=== PATIENT | female | born 1970 | race Caucasian/White ===

== ENCOUNTER → 2017-05-06 | Outpatient (CLI) | payer BC ==
--- NOTE | 2017-05-06 08:56 | RADIOLOGY REPORT (SQ) ---
EXAM DESCRIPTION: CT CHEST WITHOUT COMPLETED DATE/TIME: 05/06/2017 8:15 am REASON FOR STUDY: LOCALIZED SWELLING, MASS OR LUMP R22.9 LOCALIZED SWELLING, MASS AND LUMP, UNSPECI FIED Histoplasmosis. History of 3 pulmonary nodules right lung. Paratracheal mass. COMPARISON: None. TECHNIQUE: CT scan performed of the chest without intravenous contrast. Images reviewed with lung, soft tissue and bone windows. Reconstructed coronal and sagittal MPR images reviewed. All images st ored on PACS. All CT scanners at this facility use dose modulation, iterative reconstruction, and/or weight based d osing when appropriate to reduce radiation dose to as low as reasonably achievable (ALARA). [facility]: Dose Right [facility]: CareDose [facility]: Dose Right [facility]: Teradose 4D [facility]: Fashiolista RADIATION DOSE: CT Rad equipment meets quality standard of care and radiation dose reduction techniq ues were employed. CTDIvol: 14.0 mGy. DLP: 586 mGy-cm. mGy. LIMITATIONS: No technical limitations. FINDINGS: LUNGS AND PLEURA: In the right upper lobe there is evidence of a 3 mm partially calcified pulmonary nodule, 8 mm calcified granuloma and adjacent 4 mm calcified granuloma. Fibrotic scarring right upper lobe. HILAR AND MEDIASTINAL STRUCTURES: There is evidence of a cluster of calcified pretracheal nodes. Ezra cified right hilar node. HEART AND VASCULAR STRUCTURES: No aneurysm. No pericardial effusion. UPPER ABDOMEN: Status post cholecystectomy. Hiatal hernia. THYROID AND OTHER SOFT TISSUES: No masses. No adenopathy. BONES: No significant finding. IMPRESSION: Findings consistent with old granulomatous disease. Fibrotic scarring right upper lobe. TECHNICAL DOCUMENTATION: JOB ID: [id number] Quality ID # [id number]: Final reports with documentation of one or more dose reduction techniques (e.g., Au tomated exposure control, adjustment of the mA and/or kV according to patient size, use of iterative reconstruction technique) 2010 [employer]- All Rights Reserved
== END ==
LOC: RAD 06:59
DX: R22.9 Localized swelling, mass and lump, unspecified (principal); D71 Functional disorders of polymorphonuclear neutrophils; K44.9 Diaphragmatic hernia without obstruction or gangrene
CPT/HCPCS: 71250

== ENCOUNTER 2017-05-16 03:11 | Observation (INO) | payer BC ==
[2017-05-16] MEDS ORDERED: ASPIRIN 81 MG TABLET, CHEWABLE PO ONE ×2 (03:58→09:00)
--- NOTE | 2017-05-16 04:03 | ER Document Report ---
ED Medical Screen (RME) - General Chief Complaint: Chest Pain > 30 Stated Complaint: CHEST PAIN Time Seen by Provider: 05/16/17 03:58 Mode of Arrival: Ambulatory Information source: Patient Notes: 47-year-old female presents to ED for chest pain radiating down left arm with shortness of breath. She states her pain is squeezing type pain level 3/5. She states it has been going on and off this afternoon evening. 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 She states that when they did the surgery that caused her right lower lobe to collapse and she needed a chest tube. She states she had a collapsed right upper lobe in 2004 that she needs a chest tube. She states she has a history of high cholesterol. She says he has some nodes histoplasmosis on the right lung. She states afford she is a former smoker drinks occasionally but does not do any drugs. 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 She lives with her family. I have greeted and performed a rapid initial assessment of this patient. A comprehensive ED assessment and evaluation of the patient, analysis of test results and completion of medical decision making process will be conducted by an additional ED providers. TRAVEL OUTSIDE OF THE [place] IN LAST 30 DAYS: No - Related Data Allergies/Adverse Reactions: flavoxate [From Urispas] Allergy (Verified 05/16/17 03:28) acetaminophen [From Wygesic] Adverse Reaction (Verified 05/16/17 03:28) propoxyphene [From Wygesic] Adverse Reaction (Verified 05/16/17 03:28) Past Medical History - Social History Frequency of alcohol use: Occasional Drug Abuse: None Renal/ Medical History: Denies: Hx Peritoneal Dialysis Physical Exam - Vital signs Vitals: Temp Pulse Resp BP Pulse Ox 99.2 F 80 18 173/92 H 98 05/16/17 03:28 05/16/17 03:28 05/16/17 03:28 05/16/17 03:28 05/16/17 03:28 Course - Vital Signs Vital signs: Temp Pulse Resp BP Pulse Ox 99.2 F 80 18 173/92 H 98 05/16/17 03:28 05/16/17 03:28 05/16/17 03:28 05/16/17 03:28 05/16/17 03:28
[2017-05-16 05:03] LABS: ABSOLUTE BASOPHILS # (AUTO) 0.1 10^3/uL (0.0-0.2); ABSOLUTE EOSINOPHILS # (AUTO) 0.2 10^3/uL (0.0-0.6); ABSOLUTE LYMPHOCYTES (AUTO) 1.8 10^3/uL (0.5-4.7); ABSOLUTE MONOCYTES (AUTO) 0.6 10^3/uL (0.1-1.4); ABSOLUTE NEUT (AUTO) 5.6 10^3/uL (1.7-8.2); BASOPHILS % (AUTO) 0.8 % (0-2); EOSINOPHILS % (AUTO) 2.8 % (0-6); HEMATOCRIT 43.1 % (36.0-47.0); HEMOGLOBIN 14.6 g/dL (12.0-15.5); LYMPHOCYTES % (AUTO) 22.1 % (13-45); MEAN CORPUSCULAR HEMOGLOBIN 29.8 pg (27.0-33.4); MEAN CORPUSCULAR HGB CONC 33.8 g/dL (32.0-36.0); MEAN CORPUSCULAR VOLUME 88 fl (80-97); MONOCYTES % (AUTO) 7.2 % (3-13); PLATELET COUNT 234 10^3/uL (150-450); RED CELL DISTRIBUTION WIDTH 13.2 % (11.5-14.0); SEGMENTED NEUTROPHILS % (AUTO) 67.1 % (42-78); TOTAL CELLS COUNTED % (AUTO) 100 %; WHITE BLOOD COUNT 8.4 10^3/uL (4.0-10.5)
--- NOTE | 2017-05-16 05:15 | RADIOLOGY REPORT (SQ) ---
EXAM DESCRIPTION: CHEST PA/LAT CLINICAL HISTORY: Chest pain radiating down left arm COMPARISON: None. FINDINGS: Frontal and lateral views of the chest. The cardiomediastinal silhouette has normal size and contour. No consolidation, pneumothorax, or pleural effusion. No displaced rib fractures identified. Upper abdominal soft tissues are unremarkable. IMPRESSION: 1. No acute pulmonary process identified.
[2017-05-16 05:18] LABS: ALANINE AMINOTRANSFERASE 42 U/L (9-52); ALBUMIN 4.4 g/dL (3.5-5.0); ALKALINE PHOSPHATASE 76 U/L (38-126); ANION GAP 10 (5-19); ASPARTATE AMINO TRANSFERASE 23 U/L (14-36); BILIRUBIN,DIRECT 0.4 mg/dL (0.0-0.4); BILIRUBIN,TOTAL 0.4 mg/dL (0.2-1.3); BLOOD UREA NITROGEN 17 mg/dL (7-20); CALCIUM 10.2 mg/dL (8.4-10.2); CARBON DIOXIDE 28 mmol/L (22-30); CHLORIDE 105 mmol/L (98-107); CREATINE KINASE 46 U/L (30-135); GLUCOSE 89 mg/dL (75-110); POTASSIUM 4.7 mmol/L (3.6-5.0); SODIUM 143.2 mmol/L (137-145); TOTAL PROTEIN 6.9 g/dL (6.3-8.2)
[2017-05-16 05:30] LABS: CREATINE KINASE MB 0.76 ng/mL (<4.55); NT PRO BNP 126 pg/mL (<125)
[2017-05-16 05:32] LABS: TROPONIN I < 0.012 ng/mL
[2017-05-16] MEDS ORDERED: LIDOCAINE 2% VISCOUS SOLN 20 ML UDCUP PO ONE (07:42)
[2017-05-16] MEDS ORDERED: MAG HYDROX/AL HYDROX/SIMETH SUSP 30 ML UDCUP PO ONE (07:42)
[2017-05-16] MEDS ORDERED: METOCLOPRAMIDE HCL ORAL SOLN 10 MG/10 ML UDCUP PO ONE (07:42)
--- NOTE | 2017-05-16 07:44 | ER Document Report ---
ED General - General Chief Complaint: Chest Pain > 30 Stated Complaint: CHEST PAIN Time Seen by Provider: 05/16/17 03:58 Mode of Arrival: Ambulatory Notes: Patient is pain at approximately 9:00 last evening while she was at work. She states that she had just given the patient apparently had to pull off and turning over. She states that she walked away and 15 minutes later she had this left breast chest wall pain that lasted 15 minutes and resolved completely on its own. she had states a couple hours later after she ate some pizza she had return of her symptoms that she felt consistent with heartburn. She did not take any [id number] medications prior to coming to the ED. Currently she describes her symptoms as bruising pain around her left breast that is not worse with movement or position. states that this was initially 5 out of 5 in severity completely resolved and when it returned it was about 2 out of 5 in severity and is been present ever since. She did not receive any aspirin in triage. States that she had issues with chest pain only once before after she had had a sternotomy/right thoracotomy for previous Paratracheal mass resection back in September. She denies any previous history of PE, DVT. Former smoker quit 2 years ago. Not on control. Denies any recent travel. Denies any history of high cholesterol, diabetes, coronary artery disease, family history significant for an CT and a family member in the age of 50. Meds; lisinopril 10mg TRAVEL OUTSIDE OF THE [place] IN LAST 30 DAYS: No - Related Data Allergies/Adverse Reactions: flavoxate [From Urispas] Allergy (Verified 05/16/17 03:28) acetaminophen [From Wygesic] Adverse Reaction (Verified 05/16/17 03:28) propoxyphene [From Wygesic] Adverse Reaction (Verified 05/16/17 03:28) Past Medical History - General Information source: Patient - Social History Smoking Status: Former Smoker Frequency of alcohol use: Occasional Drug Abuse: None Family History: CAD - denies CAD under 65 Patient has suicidal ideation: No Patient has homicidal ideation: No Renal/ Medical History: Denies: Hx Peritoneal Dialysis Review of Systems - Review of Systems Constitutional: No symptoms reported EENT: No symptoms reported Cardiovascular: See HPI Respiratory: No symptoms reported Gastrointestinal: See HPI Musculoskeletal: See HPI Neurological/Psychological: No symptoms reported -: Yes All other systems reviewed and negative Physical Exam - Vital signs Vitals: Temp Pulse Resp BP Pulse Ox 99.2 F 80 18 173/92 H 98 05/16/17 03:28 05/16/17 03:28 05/16/17 03:28 05/16/17 03:28 05/16/17 03:28 - Notes Notes: PHYSICAL EXAM GENERAL: Alert, interacts well. HEAD: Normocephalic, atraumatic. EYES: Pupils equal, round, and reactive to light. Extraocular movements intact. ENT: Oral mucosa moist, tongue midline. NECK: Full range of motion. Supple. Trachea midline. LUNGS: Clear to auscultation bilaterally, no wheezes, rales, or rhonchi. No respiratory distress. HEART: Regular rate and rhythm. No murmurs, gallops, or rubs. ABDOMEN: Soft, nondistended, nontender. No guarding, rebound, or rigidity.. Bowel sounds present in all 4 quadrants. EXTREMITIES: Moves all 4 extremities spontaneously. No edema, radial and dorsalis pedis pulses 2/4 bilaterally. No cyanosis. NEUROLOGICAL: Alert and oriented x4. Normal speech. PSYCH: Normal affect, normal mood. SKIN: Warm, dry, normal turgor. No rashes or lesions noted. Course - Re-evaluation Re-evalutation: 05/16/17 07:51 Patient is a 47-year-old female is hemodynamically stable, no acute distress and afebrile. Patient still states that her discomfort is approximately 2 out of 5 in severity. Will medicate with a GI cocktail and aspirin and reassess. Patient is due for repeat troponin will add on a d-dimer to be done at 830. 05/16/17 8:45 Patient states that her chest pain improved after the aspirin but with no improvement with a GI cocktail. Repeat troponin is negative. Patient was given sublingual nitro to achieve complete resolution of her chest pressure. Patient with a heart score for based on improvement after nitro and benign physical exam concerning for musculoskeletal cause, GERD. Patient with a negative d-dimer and stable vitals are concerning for PE. Chest x-ray stable without evidence of acute infiltrate, acute respiratory failure, pneumothorax. Patient will be admitted for chest pain rule out and stress test this afternoon. Patient's been accepted by Dr Merchant - Vital Signs Vital signs: Temp Pulse Resp BP Pulse Ox 98 F 72 18 153/84 H 100 05/16/17 06:41 05/16/17 06:41 05/16/17 10:00 05/16/17 06:41 05/16/17 06:41 - Laboratory Result Diagrams: 05/16/17 04:40 05/16/17 04:40 Laboratory results interpreted by me: 05/16/17 04:40 NT-Pro-B Natriuret Pep 126 H - Diagnostic Test Radiology reviewed: Image reviewed, Reports reviewed - EKG Interpretation by Me EKG shows normal: Sinus rhythm Rate: Normal Rhythm: NSR When compared to previous EKG there are: Previous EKG unavailable Discharge - Discharge Clinical Impression: Chest pain Qualifiers: Chest pain type: unspecified Qualified Code(s): R07.9 - Chest pain, unspecified Condition: Stable Disposition: ADMITTED OBSERVATION Admitting Provider: Hospitalist [facility] Unit Admitted: Telemetry
[2017-05-16] MEDS ORDERED: ASPIRIN 81 MG TABLET, CHEWABLE ONE (08:07)
[2017-05-16] MEDS ORDERED: NITROGLYCERIN 0.4 MG/TAB 25 TAB/BOTTLE SL PRN (08:28)
[2017-05-16] MEDS ORDERED: IBUPROFEN 800 MG TABLET PO ONE (09:31)
[2017-05-16] MEDS ORDERED: ONDANSETRON 4 MG TAB.RAPDIS PO ONE (09:31)
[2017-05-16] MEDS ORDERED: LISINOPRIL 10 MG TABLET PO ONE (09:38)
[2017-05-16] MEDS ORDERED: ZOLPIDEM TARTRATE 5 MG TABLET PO PRN (09:59)
--- NOTE | 2017-05-16 10:02 | EKG REPORT ---
SEVERITY:- NORMAL ECG - SINUS RHYTHM : Confirmed by: Ernesto Moreno 16-May-2017 10:01:33
[2017-05-16] MEDS: ASPIRIN 81 MG TABLET, ENT COATED PO SCH (13:21)
[2017-05-16] MEDS: LISINOPRIL 10 MG TABLET PO SCH (13:21)
[2017-05-16] MEDS: AMLODIPINE BESYLATE 5 MG TABLET PO SCH (13:34)
--- NOTE | 2017-05-16 14:04 | PDOC H&P ---
History of Present Illness Admission Date/PCP: 05/16/17 10:00 DOMENIC BUTLER-Katia Patient complains of: Chest pain today History of Present Illness: FILI COHEN is a 47 year old female presented to emergency room complaining of left-sided chest pain with radiation to the left upper extremity. It was accompanied by heaviness and shortness of breath. She denied having experienced similar episodes in the past. 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 She states that she had a good night. Prior to experiencing the chest pain she had finished off bathing a patient with assistance. Patient also admits that lately she had been having problems with her blood pressure being up. Patient with it smoking 2 years ago. She has been trying to lose weight and so far has been successful as of losing 10 pounds. She denies history of diabetes. There is no history of coronary artery disease in first-degree relatives. Patient does not have a local provider. Patient relates improvement of pain after was given aspirin and then nitroglycerin. Due to comorbidities and response to aspirin and nitroglycerin our service was contacted and prompted to admit for further management. So far initial troponin set 2 have been negative Past Medical History Cardiac Medical History: Reports: Hypertension Pulmonary Medical History: Reports: None EENT Medical History: Reports: None Neurological Medical History: Reports: None Endocrine Medical History: Reports: None Renal/ Medical History: Reports: None Malignancy Medical History: Reports: None GI Medical History: Reports: None Musculoskeltal Medical History: Reports: None Skin Medical History: Reports: None Psychiatric Medical History: Reports: Depression Traumatic Medical History: Reports: None Hematology: Reports: None Infectious Medical History: Reports: Other Infectious History Note: Histoplasmosis Past Surgical History Past Surgical History: Reports: Cholecystectomy, Hysterectomy, Other - Bladder surgery Chest surgery Social History Smoking Status: Former Smoker Last Time Smoked: 2014 Frequency of Alcohol Use: Occasional Hx Recreational Drug Use: No Hx Prescription Drug Abuse: No Family History Family History: CAD - denies CAD under 65 Parental Family History Reviewed: Yes Children Family History Reviewed: Yes Sibling(s) Family History Reviewed.: Yes Medication/Allergy Home Medications: Gabapentin [Neurontin 300 mg Capsule] 300 mg PO Q8 05/16/17 Lisinopril [Prinivil 10 mg Tablet] 10 mg PO DAILY 05/16/17 Meloxicam [Mobic] 7.5 mg PO BID 05/16/17 Omeprazole 40 mg PO DAILY 05/16/17 Ranitidine HCl [Zantac 150 mg Tablet] 150 mg PO QPMP PRN 05/16/17 Tizanidine HCl [Zanaflex] 4 mg PO QHS 05/16/17 Allergies/Adverse Reactions: flavoxate [From Urispas] Allergy (Verified 05/16/17 03:28) acetaminophen [From Wygesic] Adverse Reaction (Verified 05/16/17 03:28) propoxyphene [From Wygesic] Adverse Reaction (Verified 05/16/17 03:28) Review of Systems Constitutional: ABSENT: chills, fatigue, fever(s), headache(s), night sweats Eyes: ABSENT: visual disturbances Ears: ABSENT: hearing changes Nose, Mouth, and Throat: ABSENT: mouth pain, sore throat Cardiovascular: PRESENT: chest pain Respiratory: PRESENT: dyspnea Gastrointestinal: PRESENT: abdominal pain. ABSENT: nausea, vomiting Genitourinary: ABSENT: dysuria, hematuria Musculoskeletal: ABSENT: back pain, deformity, joint swelling Neurological: PRESENT: dizziness. ABSENT: weakness Endocrine: ABSENT: polyphagia, polyuria Physical Exam Vital Signs: Temp Pulse Resp BP Pulse Ox 97.7 F 72 24 H 134/75 H 98 05/16/17 12:18 05/16/17 06:41 05/16/17 13:00 05/16/17 12:00 05/16/17 13:00 General appearance: PRESENT: no acute distress, cooperative, obese Head exam: PRESENT: atraumatic, normocephalic Eye exam: PRESENT: conjunctiva pink, EOMI, PERRLA Ear exam: PRESENT: normal external ear exam Mouth exam: PRESENT: moist Neck exam: PRESENT: full ROM, tenderness. ABSENT: JVD, lymphadenopathy Musculoskeletal exam: PRESENT: ambulatory, full ROM Neurological exam: PRESENT: alert, awake, oriented to person, oriented to place , oriented to time, oriented to situation, CN II-XII grossly intact Psychiatric exam: PRESENT: appropriate affect, normal mood Skin exam: PRESENT: dry, normal color Results Impressions: Chest X-Ray 05/16/17 03:59 IMPRESSION: 1. No acute pulmonary process identified. Assessment & Plan - Diagnosis (1) Hypertensive urgency Is this a current diagnosis for this admission?: Yes Plan: Will add Norvasc and increase lisinopril. Likely presentation relates to uncontrolled high blood pressure (2) Chest pain Qualifiers: Chest pain type: unspecified Qualified Code(s): R07.9 - Chest pain, unspecified Is this a current diagnosis for this admission?: Yes Plan: We will schedule patient for nuclear stress test and if negative will discharge today - Time Time Spent: 30 to 50 Minutes Medications reviewed and adjusted accordingly: Yes Anticipated discharge: Home - Inpatient Certification Based on my medical assessment, after consideration of the patient's comorbidities, presenting symptoms, or acuity I expect that the services needed warrant INPATIENT care.: No I certify that my determination is in accordance with my understanding of Medicare's requirements for reasonable and necessary INPATIENT services [42 CFR 412.3e].: Yes Medical Necessity: Need Close Monitoring Due to Risk of Patient Decompensation
[2017-05-16] MEDS: HEPARIN SOD (PORCINE) 5,000 UNIT/ML 1 ML SYRINGE SUBCUT SCH ×2 (16:41→23:07)
[2017-05-16] MEDS ORDERED: ATORVASTATIN CALCIUM 80 MG TABLET PO SCH (22:00)
[2017-05-17] MEDS: HEPARIN SOD (PORCINE) 5,000 UNIT/ML 1 ML SYRINGE SUBCUT SCH (05:55)
[2017-05-17] MEDS ORDERED: ACETAMINOPHEN 325 MG TABLET PO PRN (09:03)
[2017-05-17] MEDS ORDERED: REGADENOSON INJ 0.4 MG/5 ML DISP.SYRIN IV ONE (12:10)
[2017-05-17] MEDS ORDERED: AMINOPHYLLINE INJ/PF 250 MG/10 ML SDV IV ONE (12:10)
[2017-05-17] MEDS: ASPIRIN 81 MG TABLET, ENT COATED PO SCH (12:30)
[2017-05-17 12:31] VITALS: BP 147/68
[2017-05-17] MEDS: AMLODIPINE BESYLATE 5 MG TABLET PO SCH (12:31)
[2017-05-17] MEDS: LISINOPRIL 10 MG TABLET PO SCH (12:32)
--- NOTE | 2017-05-17 12:46 | DRAGON STRESS TEST REPORT ---
INTRAVENOUS LEXISCAN CARDIOLITE STRESS TEST USING SINGLE PHOTON EMMISION COMPUTERIZED TOMOGRAPHIC. DATE OF PROCEDURE: May 17, 2017, INDICATION : Chest pain CARDIAC RISK FACTORS: Hypertension RESTING EKG: Sinus rhythm without any baseline ST-T wave changes STRESS EKG: No significant changes noted with LexiScan bolus REASON FOR TERMINATION: Protocol. PROCEDURE REPORT: Baseline heart rate 62 beats per minute with blood pressure of 134/66. Patient had no significant complaints. Heart rate at 2 minutes post bolus 69 with a blood pressure of 154/80. 3 minutes post bolus heart rate 74 with blood pressure of 140/75. No significant EKG changes were noted. Patient had no significant complaints during the procedure or postprocedure. Patient injected with Aminophyllin 75 mg at 3 minutes or later after Lexiscan bolus. CONCLUSIONS: Normal EKG and hemodynamic response to IV LexiScan. NUCLEAR DATA: At rest the patient was given 15.60 millicuries of technetium 99 sestamibi injected intravenously. As per protocol rest gated SPECT images were obtained. On day of stress test, the patient was given intravenous LexiScan at a dose of 0.4 mg in 5 mL intravenously, followed by flush with normal saline. Subsequently the stress dose of 44.32 millicuries of technetium 99 sestamibi was injected intravenously. As per protocol stress gated images were obtained. NUCLEAR INTERPRETATION: Both raw and processed data were used for interpretation. Visual, qualitative, computer-generated quantitative data was used. There was good myocardial uptake of technetium compound. Motion artifact and soft tissue attenuations were noted. Increased visceral uptake was noted. Liver uptake was noted to be significantly increased, it caused some difficulty with interpretation of perfusion of the inferior wall. Small area in the mid inferior wall was noted to have decreased uptake in the stress imaging as compared to rest imaging with SDS of 1, therefore not significant overall and is felt most likely artifactual rather than true ischemia. No definitive areas of transient perfusion defect noted, No definitive areas of fixed perfusion defect or scars noted. In addition, mild increased point uptake noted in the left forearm, possible slight extravasation of radioactive material. It did not materially affect the interpretation of cardiac uptake. Consider reexamination of the site , and left upper arm. EKG gated imaging showed LV EF at 60 %, rest and stress gated EF similar visually. T. I D. ratio was 0.64. Lung heart ratio noted to be within normal limits 0.39. No significant extracardiac and abnormal radiotracer activities were noted. RV free wall uptake was noted to be WNL. IMPRESSION: Also refer to comments under nuclear interpretation. Also test results needs to be interpreted in the context of pretest probability. 1. No definitive areas of transient perfusion defect noted. Please refer to comments under nuclear interpretation. 2. There is no definitive scintigraphic evidence of myocardial infarction/scar. 3. EKG gated imaging shows left ventricular ejection fraction of approx. 60 %. 4. Clinical correlation requested as occasionally single vessel disease or balanced ischemia could be missed. In approximately 10% of the cases Lexiscan may not cause adequate vasodilatory stress. RECOMMENDATIONS: Aggressive risk factor modification and medical management. Further evaluation may be needed if continued symptoms or other high risk indicators are noted on clinical evaluation. Close cardiology follow-up is also recommended. Clinical correlation with echocardiogram derived ejection fraction. Inability to exercise by itself can lead to increased cardiovascular event risks. Consider cardiology consultation and or follow-up if clinically indicated. I am available for cardiology evaluation and consultation if requested by the scrap separator, unless patient already has a fur floor worker. TERRENCE
--- NOTE | 2017-05-17 16:26 | PDOC DISCHARGE SUMMARY ---
General - Admit/Disc Date/PCP Admission Date/Primary Care Provider: 05/16/17 10:00 MARÍA ZAMBRANO, SOLID WASTE MANAGER-C Discharge Date: 05/17/17 - Discharge Diagnosis (1) Hypertensive urgency Is this a current diagnosis for this admission?: Yes (2) Chest pain Is this a current diagnosis for this admission?: Yes - Additional Information Resuscitation Status: Full Code Prescriptions: Amlodipine Besylate [Norvasc 5 mg Tablet] 5 mg PO DAILY #30 tablet Home Medications: Gabapentin [Neurontin 300 mg Capsule] 300 mg PO Q8 05/16/17 Lisinopril [Prinivil 10 mg Tablet] 10 mg PO DAILY 05/16/17 Omeprazole 40 mg PO DAILY 05/16/17 Ranitidine HCl [Zantac 150 mg Tablet] 150 mg PO QPMP PRN 05/16/17 Tizanidine HCl [Zanaflex] 4 mg PO QHS 05/16/17 Amlodipine Besylate [Norvasc 5 mg Tablet] 5 mg PO DAILY #30 tablet 05/17/17 History of Present Illness History of Present Illness: FILI COHEN is a 47 year old female presented to emergency room complaining of left-sided chest pain with radiation to the left upper extremity. It was accompanied by heaviness and shortness of breath. She denied having experienced similar episodes in the past. 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 She stated that she had a good night. Prior to experiencing the chest pain she had finished off bathing a patient with assistance. Patient also reported that lately she had been having problems with her blood pressure being up. Patient quitted smoking 2 years ago. She has been trying to lose weight and so far has been successful as of losing 10 pounds. She denied history of diabetes. There is no history of coronary artery disease in first-degree relatives. Patient did not have a local provider. Patient related improvement of pain after was given aspirin and then nitroglycerin. Due to comorbidities and response to aspirin and nitroglycerin our service was contacted and prompted to admit for further management. Hospital Course Hospital Course: Patient was admitted under the hospitalist service. There were no cardiac dysrhythmias. Third set of troponin was negative. Patient underwent nuclear stress test which was negative. Patient is currently under a lot of stress at home since she has to take care of her who has multiple medical problems. Patient has been advised as to quit taking meloxicam. We believe that major issue related to blood pressure being elevated and we added Norvasc to lisinopril. She has been advised as to follow-up with her primary care provider and with Dr. Moreno. BNP was slightly elevated however patient did not appear to be fluid overloaded. Since patient had achieved maximum benefit of hospitalization stay prompted to discharge since stable Physical Exam Vital Signs: Temp Pulse Resp BP Pulse Ox 98.5 F 62 15 94/65 L 98 05/17/17 03:53 05/17/17 03:53 05/17/17 03:53 05/17/17 03:53 05/17/17 03:53 Intake & Output 05/16/17 05/17/17 05/18/17 06:59 06:59 06:59 Intake Total 120 Output Total 600 Balance -480 Weight 111 kg General appearance: PRESENT: cooperative, obese Head exam: PRESENT: atraumatic, normocephalic Eye exam: PRESENT: conjunctiva pink, EOMI, PERRLA Ear exam: PRESENT: normal external ear exam, TM's normal bilaterally Mouth exam: PRESENT: moist Neck exam: PRESENT: full ROM. ABSENT: JVD, lymphadenopathy, tenderness Respiratory exam: PRESENT: clear to auscultation christal Cardiovascular exam: PRESENT: RRR. ABSENT: diastolic murmur, systolic murmur Vascular exam: PRESENT: normal capillary refill GI/Abdominal exam: PRESENT: normal bowel sounds, soft. ABSENT: tenderness Extremities exam: PRESENT: full ROM. ABSENT: joint swelling, pedal edema Musculoskeletal exam: PRESENT: ambulatory. ABSENT: deformity Neurological exam: PRESENT: alert, awake, oriented to person, oriented to place , oriented to time, oriented to situation, CN II-XII grossly intact Psychiatric exam: PRESENT: appropriate affect, normal mood Skin exam: PRESENT: intact, normal color Results Laboratory Results: 05/16/17 15:15 Troponin I < 0.012 Impressions: Chest X-Ray 05/16/17 03:59 IMPRESSION: 1. No acute pulmonary process identified. Plan Discharge Plan: Discharge home Time Spent: Less than 30 Minutes
== END 2017-05-17 13:38 | disposition home or self-care (01) ==
LOC: ER 03:11 → EH 10:00 → 5 22:55
PROVIDERS: ADMIT Family Medicine; ATTEND Family Medicine
DX: I16.0 Hypertensive urgency (principal); R07.9 Chest pain, unspecified; R10.9 Unspecified abdominal pain; R06.00 Dyspnea, unspecified; Z87.891 Personal history of nicotine dependence; Z73.3 Stress, not elsewhere classified; Z63.6 Dependent relative needing care at home; B39.2 Pulmonary histoplasmosis capsulati, unspecified; Z82.49 Family history of ischemic heart disease and other diseases of the circulatory system; Z90.49 Acquired absence of other specified parts of digestive tract; Z98.890 Other specified postprocedural states
CPT/HCPCS: 93005; 99285; 36415; 82553; 82550; 85025; 80053; 84484; 85379; 83880; 93017; 71046; 78452; 93010; G0378 ×2; A9500; J2785; S0119; J3490; J0280; Q9969

== ENCOUNTER → 2017-08-14 | Outpatient (CLI) | payer BC ==
--- NOTE | 2017-08-14 14:44 | RADIOLOGY REPORT (SQ) ---
EXAM DESCRIPTION: KNEE RIGHT 4 VIEWS COMPLETED DATE/TIME: 08/14/2017 1:44 pm REASON FOR STUDY: R KNEE PAIN M25.561 PAIN IN RIGHT KNEE COMPARISON: None. NUMBER OF VIEWS: Four views. TECHNIQUE: AP, lateral, and both oblique radiographic images acquired of the right knee. LIMITATIONS: None. FINDINGS: MINERALIZATION: Normal. BONES: No acute fracture or dislocation. No worrisome bone lesions. No significant osteophytes. JOINT: No effusion. No chondrocalcinosis. OTHER: No other significant finding. IMPRESSION: NEGATIVE STUDY OF THE RIGHT KNEE. NO EXPLANATION FOR PAIN. TECHNICAL DOCUMENTATION: JOB ID: [id number] [employer]- All Rights Reserved Reading location - IP/workstation name: [email or web address]
[2017-08-14 14:50] LABS: ANION GAP 13 (5-19); BLOOD UREA NITROGEN 19 mg/dL (7-20); CALCIUM 9.6 mg/dL (8.4-10.2); CARBON DIOXIDE 26 mmol/L (22-30); CHLORIDE 105 mmol/L (98-107); GLUCOSE 98 mg/dL (75-110); POTASSIUM 4.4 mmol/L (3.6-5.0); SODIUM 143.7 mmol/L (137-145); URIC ACID 3.9 mg/dL (2.5-7.5)
== END ==
LOC: RAD 13:32
PROVIDERS: ATTEND Family Medicine Geriatric Medicine
DX: M25.561 Pain in right knee (principal); I10 Essential (primary) hypertension
CPT/HCPCS: 36415; 80048; 84550

== ENCOUNTER → 2017-09-22 | Outpatient (CLI) | payer BC ==
--- NOTE | 2017-09-22 09:16 | RADIOLOGY REPORT (SQ) ---
EXAM DESCRIPTION: COOKIE SWALLOW COMPLETED DATE/TIME: 09/22/2017 8:50 am REASON FOR STUDY: GERD (K21.9) K21.9 GASTRO-ESOPHAGEAL REFLUX DISEASE WITHOUT ESOPHAGITIS COMPARISON: None. TECHNIQUE: Videofluoroscopic swallowing examination was performed in conjunction with speech patholo gy. Videofluoroscopic imaging was obtained and reviewed and these are the findings: RADIATION DOSE: Fluoro time 1.02 minutes 1 images saved to PACS. LIMITATIONS: None FINDINGS: The patient was brought into the fluoro room and placed upright on a modified barium swall ow chair. The patient was then given multiple consistencies mixed with barium to swallow under live fluoroscopic video guidance. According to the Speech Pathologist there was no penetration or aspirat ion. Please refer to the speech pathology report for further details. IMPRESSION: NO EVIDENCE OF PENETRATION OR ASPIRATIONPLEASE SEE SPEECH PATHOLOGIST REPORT FOR OTHER F INDINGS AND RECOMMENDATIONS. COMMENT: None Quality ID [id number]: Final reports for procedures using fluoroscopy that document radiation exposure yovani chantal, or exposure time and number of fluorographic images (if radiation exposure indices are not avail able) TECHNICAL DOCUMENTATION: JOB ID: [id number] [employer]- All Rights Reserved Reading location - IP/workstation name: [email or web address]
--- NOTE | 2017-09-22 13:45 | ST Modified Barium Swallow ---
Recommendation - Recommendations Recommendations: No diet change recommended, normal oral and pharyngeal phase swalloiwng seen. Patient may benefit from dry mouth products and use of reflux precautions. Medical Diagnoses - Medical Diagnoses Medical Diagnosis Description & ICD-10 Code(s): GERD K21.9, dysphagia R13.10 Other Medical Diagnoses/Co-Morbidities: per patient report: COPD, non-cancerous mesothelioma, "nodules on wind pipe", reflux, thoracotomy. ST Modified Barium Swallow - General Date: 09/22/17 Referring Physician: Dr. Ritter Risks/Precautions: None Date of Onset: 09/05/16 - approximate onset date Reason for Referral: globus sensation, coughing - History History obtained from: Patient -: Medical - Patient reports having difficulty swallowing for approximately 1 year, reports this began after her second thoracotomy. Reports frequent throat clearing and occasionally choking on liquids and pills. No recent pneumonia reported, patient had upper GI prior to MBSS, reportedly reflux was seen. Medications: per patient report: gabapentin, omeprazole, inhalers, ranitidine, meloxicam Allergies: patient reports propoxyphen allergy - Functional Status Prior Functional Status: INDEPENDENT: feeding - independent Current Functional Limitations: feeding - Subjective Patient/caregiver goal(s): safe swallow Cognitive-Linguistic Function: WNL Speech Intelligibility: WNL Current Nutritional Means: PO Current PO diet: Regular Current symptoms: Coughing, c/o Globus sensation Pain: Patient reports, 1/5 - sternal pain - Objective Assessment: Upright, Left Lateral - Food Trials Used Food trials used: Thin liquids, Pureed, Regular The patient: Was Able to Self Feed - Oral-Motor Skills Dentition: Dentures-Upper Velo-pharyngeal function: Palatal reflex - wnl - Assessment Oral prep: Normal Labial closure: Adequate Leakage: None Mastication: Adequate Lingual Movement: Normal Oral stage: Normal for this Procedure - Pharyngeal Stage Initiation of Pharyngeal Stage Reflex: Normal Decreased laryngeal elevation: No Reduced Velopharyngeal Closure: no Reduced pressure generation: No reduced tongue-based retraction: No Pre-swallow pooling in valleculae: None Pre-Swallow pooling in pyriforms: None Reduced Thyro-Hyoid approximation: No Reduced epiglottic excursion: No Reduced pharyngeal peristalsis/contraction: No Post-swallow residulas vallecular: None Post-Swallow residuals in pyriforms: None - Esophageal Stage Cricopharyngeal Function: Normal - Fall Risk Assessment Medications/Conditions that increase fall risks include: Antidepressants, sedatives, anti-arrhythmic, diuretic, benzodiazipenes, neuroleptics. BP regulation problems, cardiac problems, balance or gait deficits, neurological problems. Is patient considered at risk for falls: no Fall Risk Actions Taken: No action needed - Behavioral Observations During evaluation process patient: was pleasant, was cooperative, able to answer questions, provided medical history - Treatment / Educational Needs: Treatment/Education Needs: Treatment consisted of patient education on the role of the Speech Pathologist. Patient's plan of care and golas were communicated as well as scheduling and attendance policies. Recommendations for initial home program were shared. Patient demonstrated understanding and verbalized agreement. - Impression/Summary Laryngeal Penetration: No Tracheal Aspiration: no Patient presents with: Normal swallow at eval Risk of Aspiration: Minimal Evaluation and Findings: Patient presents with adequate oral and pharyngeal phase swallowing skills. Paitent did report some difficulty with propelling bolus, however, structures were moving appropriately, and difficulty may be due to dry mouth. No recommendations other than following reflux precautions. - Recommendations Solid diet recommendations: Regular Liquid Diet Modification: Thin Pt/Family education and followup with MD: Yes Dysphagia therapy with NURSES' REGISTRY DIRECTOR: no Reflux Precautions: Taught to Patient Recommended techniques: Fully Upright During Meal Information, Precautions and Recommendations: Patient (Written), Patient (Verbal ) - Time Total Time: 20 - Plan of Care Strategies to optimize patient understanding include:: ongoing assessment of educational needs, implementation of educational strategies, and re-education. - - -: Thank you for the opportunity to work with this patient and his/her family. Should you have any questions about this patient's plan or progress, I can be reached at [phone]. Charge G Code? - - -: No
--- NOTE | 2017-09-22 14:50 | RADIOLOGY REPORT (SQ) ---
EXAM DESCRIPTION: UGI SERIES COMPLETED DATE/TIME: 09/22/2017 8:20 am REASON FOR STUDY: CHRONIC GERD (K21.9) K21.9 GASTRO-ESOPHAGEAL REFLUX DISEASE WITHOUT ESOPHAGITIS COMPARISON: CT chest 05/06/2017 TECHNIQUE: Under fluoroscopic guidance, patient ingested effervescent granules followed by thick and thin barium. Fluoroscopic spot images and routine radiographic images acquired and stored on PACS. 12 MM BARIUM TABLET GIVEN: Yes. No significant delay in passage. LIMITATIONS: None. FLUOROSCOPY TIME: FLUORO TIME: 1.6 minutes 17 digital images saved to PACS. FINDINGS: NEUROMUSCULAR COORDINATION OF SWALLOW: Normal. No aspiration. ESOPHAGEAL MOTILITY: Normal peristalsis. No esophageal spasm. ESOPHAGEAL MUCOSA: Normal mucosa without masses or ulceration. GASTRO-ESOPHAGEAL JUNCTION: Small sliding hiatal hernia. Unprovoked gastroesophageal reflux to the m id 3rd of the esophagus. STOMACH: Normal without masses or ulcerations. GASTRIC OUTLET: No delay in emptying. Normal pylorus. DUODENAL BULB: Normal distention. No spasm or ulceration. DUODENUM: Mucosa normal. No extrinsic masses or malrotation. PROXIMAL SMALL BOWEL: Mucosa normal. No extrinsic masses or malrotation. NON-GI TRACT STRUCTURES: Clips right upper quadrant post cholecystectomy OTHER: No other significant finding. IMPRESSION: Small sliding hiatal hernia with unprovoked gastroesophageal reflux to the mid 3rd of th e esophagus. COMMENT: Quality ID 145: Final reports for procedures using fluoroscopy that document radiation exp osure indices, or exposure time and number of fluorographic images (if radiation exposure indices are not available) TECHNICAL DOCUMENTATION: JOB ID: [id number] [employer]- All Rights Reserved Reading location - IP/workstation name: [facility]
== END ==
LOC: RAD 07:28
PROVIDERS: ATTEND Internal Medicine Pulmonary Disease
DX: K21.9 Gastro-esophageal reflux disease without esophagitis (principal)
CPT/HCPCS: 74230; 74247

== ENCOUNTER → 2017-10-21 | Outpatient (CLI) | payer BC, OTHER ==
--- NOTE | 2017-10-21 13:10 | RADIOLOGY REPORT (SQ) ---
EXAM DESCRIPTION: CHEST 2 VIEWS COMPLETED DATE/TIME: 10/21/2017 12:01 pm REASON FOR STUDY: COUGH/COPD COMPARISON: None. EXAM PARAMETERS: NUMBER OF VIEWS: two views TECHNIQUE: Digital Frontal and Lateral radiographic views of the chest acquired. RADIATION DOSE: NA LIMITATIONS: none FINDINGS: LUNGS AND PLEURA: Small calcified granuloma in the right upper lobe. No acute opacities, masses or pneumothorax. No pleural effusion. MEDIASTINUM AND HILAR STRUCTURES: No masses or contour abnormalities. HEART AND VASCULAR STRUCTURES: Heart normal size. No evidence for failure. BONES: No acute findings. Mild thoracic spondylosis. HARDWARE: None in the chest. OTHER: No other significant finding. IMPRESSION: NO ACUTE RADIOGRAPHIC FINDING IN THE CHEST. TECHNICAL DOCUMENTATION: JOB ID: [id number] [employer]- All Rights Reserved Reading location - IP/workstation name: [email or web address]
== END ==
LOC: RAD 11:48
PROVIDERS: ATTEND Family Medicine Geriatric Medicine
DX: J44.9 Chronic obstructive pulmonary disease, unspecified (principal); R05 Cough
CPT/HCPCS: 71046

== ENCOUNTER → 2017-10-27 | Outpatient (CLI) | payer BC, OTHER ==
[2017-10-27 08:17] LABS: ABSOLUTE BASOPHILS # (AUTO) 0.1 10^3/uL (0.0-0.2); ABSOLUTE EOSINOPHILS # (AUTO) 0.3 10^3/uL (0.0-0.6); ABSOLUTE LYMPHOCYTES (AUTO) 1.1 10^3/uL (0.5-4.7); ABSOLUTE MONOCYTES (AUTO) 0.6 10^3/uL (0.1-1.4); ABSOLUTE NEUT (AUTO) 5.6 10^3/uL (1.7-8.2); BASOPHILS % (AUTO) 0.8 % (0-2); EOSINOPHILS % (AUTO) 3.5 % (0-6); HEMATOCRIT 38.5 % (36.0-47.0); HEMOGLOBIN 12.9 g/dL (12.0-15.5); LYMPHOCYTES % (AUTO) 14.6 % (13-45); MEAN CORPUSCULAR HEMOGLOBIN 29.7 pg (27.0-33.4); MEAN CORPUSCULAR HGB CONC 33.6 g/dL (32.0-36.0); MEAN CORPUSCULAR VOLUME 88 fl (80-97); MONOCYTES % (AUTO) 8.1 % (3-13); PLATELET COUNT 245 10^3/uL (150-450); RED BLOOD COUNT 4.36 10^6/uL (3.72-5.28); RED CELL DISTRIBUTION WIDTH 13.3 % (11.5-14.0); TOTAL CELLS COUNTED % (AUTO) 100 %; WHITE BLOOD COUNT 7.6 10^3/uL (4.0-10.5)
[2017-10-27 08:37] LABS: ALANINE AMINOTRANSFERASE 45 U/L (9-52); ALBUMIN 3.8 g/dL (3.5-5.0); ALKALINE PHOSPHATASE 87 U/L (38-126); ANION GAP 9 (5-19); ASPARTATE AMINO TRANSFERASE 28 U/L (14-36); BILIRUBIN,DIRECT 0.4 mg/dL (0.0-0.4); BILIRUBIN,TOTAL 0.6 mg/dL (0.2-1.3); BLOOD UREA NITROGEN 15 mg/dL (7-20); CALCIUM 9.2 mg/dL (8.4-10.2); CARBON DIOXIDE 27 mmol/L (22-30); CHLORIDE 105 mmol/L (98-107); CHOLESTEROL 154.89 mg/dL (0-200); GLUCOSE 101 mg/dL (75-110); POTASSIUM 4.7 mmol/L (3.6-5.0); SODIUM 141.3 mmol/L (137-145); TOTAL PROTEIN 6.5 g/dL (6.3-8.2); TRIGLYCERIDES 102 mg/dL (<150)
[2017-10-27 08:50] LABS: DIRECT LDL 60 mg/dL (<100)
== END ==
LOC: OD 07:37
PROVIDERS: ATTEND Family Medicine Geriatric Medicine
DX: I10 Essential (primary) hypertension (principal); K21.9 Gastro-esophageal reflux disease without esophagitis; E66.9 Obesity, unspecified; Z79.899 Other long term (current) drug therapy
CPT/HCPCS: 36415; 80053; 80061; 84443; 85025

== ENCOUNTER → 2018-01-22 | Outpatient (CLI) | payer BC, OTHER ==
[2018-01-22 11:19] LABS: POTASSIUM 4.6 mmol/L (3.6-5.0)
[2018-01-22 12:32] LABS: FOLATE 10.2 ng/mL (>2.76)
== END ==
LOC: OD 08:00
PROVIDERS: ATTEND Internal Medicine Pulmonary Disease
DX: G25.81 Restless legs syndrome (principal)
CPT/HCPCS: 36415; 82306; 82607; 82746; 83735; 84132

== ENCOUNTER 2018-01-30 09:37 | Day surgery (SDC) | payer BC, OTHER ==
[2018-01-22 11:04] LABS: HEMATOCRIT 41.9 % (36.0-47.0); HEMOGLOBIN 14.1 g/dL (12.0-15.5); MEAN CORPUSCULAR HEMOGLOBIN 29.3 pg (27.0-33.4); MEAN CORPUSCULAR HGB CONC 33.7 g/dL (32.0-36.0); MEAN CORPUSCULAR VOLUME 87 fl (80-97); PLATELET COUNT 218 10^3/uL (150-450); RED BLOOD COUNT 4.82 10^6/uL (3.72-5.28); WHITE BLOOD COUNT 5.6 10^3/uL (4.0-10.5)
--- NOTE | 2018-01-22 12:48 | EKG REPORT ---
SEVERITY:- NORMAL ECG - SINUS RHYTHM : Confirmed by: Vito Adames MD 22-Jan-2018 12:47:54
[~2018-01-30 09:37] MED LIST: LACTATED RINGERS 1000 ML IV PRN
[2018-01-30] MEDS ORDERED: PROPOFOL INJ 200 MG/20 ML VIAL IV ONE (11:14)
[2018-01-30] MEDS ORDERED: MIDAZOLAM 2 MG/2 ML INJ ONE (11:14)
--- NOTE | 2018-01-30 11:41 | Discharge Summary ---
Discharge Summary (SDC) - Discharge Final Diagnosis: Hiatal hernia, reflux esophagitis, antral gastritis. Date of Surgery: 01/30/18 Discharge Date: 01/30/18 Condition: Stable Treatment or Instructions: Follow-up with me in 1-2 weeks. Discharge home. Diet as tolerated. Activity as tolerated. Referrals: ERIKA AGUSTIN MD [Primary Care Provider] - Discharge Diet: As Tolerated Respiratory Treatments at Home: Deep Breathing/Coughing, Incentive Spirometer Discharge Activity: Activity As Tolerated Home Care Assistance: None Needed Report the Following to Your Physician Immediately: Shortness of Breath, Nausea , Vomiting, Increase in Pain, Fever over 101 Degrees, Unusual Bleeding
--- NOTE | 2018-01-30 11:44 | Operative Report ---
Nonrecallable Operative Report DATE OF SURGERY: 01/30/18 PREOPERATIVE DIAGNOSIS: Severe reflux POSTOPERATIVE DIAGNOSIS: 1. Reflux esophagitis, moderate. 2. Antral gastritis. 3. Small hiatal hernia. OPERATION: EGD with biopsy SURGEON: DAKOTA ALMENDAREZ ANESTHESIA: LMAC TISSUE REMOVED OR ALTERED: 1. Antrum. 2. Distal esophagus COMPLICATIONS: None apparent ESTIMATED BLOOD LOSS: Minimal PROCEDURE: Procedure in detail: After informed consent was obtained, the patient was brought into the operating room and laid in the left lateral decubitus position. The endoscope was passed down the oropharynx, down the esophagus, and into the stomach. The stomach was insufflated with air. Immediately there was noted to be gastritis in the antrum. There were several small gastric ulcerations. The scope was pushed through the pylorus, and into the first and second portion of the duodenum. The duodenum appeared normal. The scope was pulled back into the gastric antrum, where biopsy was taken for pathology. A retroflexion maneuver was performed, noting a small hiatal hernia. The scope was pulled up into the distal esophagus where moderate reflux esophagitis was identified. Biopsy was taken in the distal esophagus. The scope was then pulled up the remainder of the esophagus. The remainder of the esophagus was smooth in contour without masses, lesions, or other ulcerations. The scope was removed from the oropharynx, and the procedure was concluded. All sponge, instrument, and needle counts were correct x2. Condition: Stable.
[2018-01-30 12:56] VITALS: BP 139/84
== END 2018-01-30 12:55 | disposition home or self-care (01) ==
LOC: OROUT 09:37
PROVIDERS: ATTEND Surgery
DX: K44.9 Diaphragmatic hernia without obstruction or gangrene (principal); K21.0 Gastro-esophageal reflux disease with esophagitis; K29.50 Unspecified chronic gastritis without bleeding; J44.9 Chronic obstructive pulmonary disease, unspecified; I10 Essential (primary) hypertension; E66.9 Obesity, unspecified; K58.9 Irritable bowel syndrome, unspecified; G57.90 Unspecified mononeuropathy of unspecified lower limb; B39.9 Histoplasmosis, unspecified; R91.8 Other nonspecific abnormal finding of lung field; Z87.891 Personal history of nicotine dependence; Z88.8 Allergy status to other drugs, medicaments and biological substances; Z79.899 Other long term (current) drug therapy
CPT/HCPCS: 43239; 93005; 36415; 85027; 88305 ×2; 93010; J2250; J2704; 731

== ENCOUNTER → 2018-02-10 | Day surgery (SDC) | payer BC ==
[~2018-02-10] MED LIST changes: -LACTATED RINGERS 1000 ML IV PRN; +LIDOCAINE 2% JELLY 5 ML TUBE ONE
== END ==
LOC: END 09:20
PROVIDERS: ATTEND Surgery
DX: K44.9 Diaphragmatic hernia without obstruction or gangrene (principal)
CPT/HCPCS: 91010

== ENCOUNTER → 2018-02-16 | Outpatient (CLI) | payer BC ==
--- NOTE | 2018-02-16 13:17 | RADIOLOGY REPORT (SQ) ---
EXAM DESCRIPTION: CHEST PA/LATERAL COMPLETED DATE/TIME: 02/16/2018 1:02 pm REASON FOR STUDY: PRE-OP COMPARISON: CT chest 05/06/2017 Chest films 05/16/2017, 04/23/2017 EXAM PARAMETERS: NUMBER OF VIEWS: two views TECHNIQUE: Digital Frontal and Lateral radiographic views of the chest acquired. RADIATION DOSE: NA LIMITATIONS: none FINDINGS: LUNGS AND PLEURA: No opacities, masses or pneumothorax. No pleural effusion. MEDIASTINUM AND HILAR STRUCTURES: No masses or contour abnormalities. HEART AND VASCULAR STRUCTURES: Heart normal size. No evidence for failure. BONES: No acute findings. HARDWARE: Clips right upper quadrant post cholecystectomy OTHER: No other significant finding. IMPRESSION: NO SIGNIFICANT RADIOGRAPHIC FINDING IN THE CHEST. TECHNICAL DOCUMENTATION: JOB ID: [id number] [employer]- All Rights Reserved Reading location - IP/workstation name: [facility]
[2018-02-16 13:25] LABS: HEMATOCRIT 39.3 % (36.0-47.0); HEMOGLOBIN 13.2 g/dL (12.0-15.5); MEAN CORPUSCULAR HGB CONC 33.7 g/dL (32.0-36.0); MEAN CORPUSCULAR VOLUME 86 fl (80-97); PLATELET COUNT 220 10^3/uL (150-450); RED BLOOD COUNT 4.56 10^6/uL (3.72-5.28); RED CELL DISTRIBUTION WIDTH 13.1 % (11.5-14.0); WHITE BLOOD COUNT 6.2 10^3/uL (4.0-10.5)
[2018-02-16 13:57] LABS: ALANINE AMINOTRANSFERASE 56 U/L (9-52); ALBUMIN 3.8 g/dL (3.5-5.0); ALKALINE PHOSPHATASE 86 U/L (38-126); ANION GAP 7 (5-19); ASPARTATE AMINO TRANSFERASE 34 U/L (14-36); BILIRUBIN,DIRECT 0.4 mg/dL (0.0-0.4); BILIRUBIN,TOTAL 0.6 mg/dL (0.2-1.3); BLOOD UREA NITROGEN 15 mg/dL (7-20); CALCIUM 9.5 mg/dL (8.4-10.2); CARBON DIOXIDE 26 mmol/L (22-30); CHLORIDE 106 mmol/L (98-107); GLUCOSE 98 mg/dL (75-110); POTASSIUM 4.5 mmol/L (3.6-5.0); TOTAL PROTEIN 6.5 g/dL (6.3-8.2)
== END ==
LOC: OD 12:32
PROVIDERS: ATTEND Physician Assistant Surgical
DX: Z01.818 Encounter for other preprocedural examination (principal); K21.9 Gastro-esophageal reflux disease without esophagitis; I10 Essential (primary) hypertension; E66.9 Obesity, unspecified; K58.9 Irritable bowel syndrome, unspecified; G57.90 Unspecified mononeuropathy of unspecified lower limb; B39.9 Histoplasmosis, unspecified; R91.8 Other nonspecific abnormal finding of lung field; J44.9 Chronic obstructive pulmonary disease, unspecified; N39.0 Urinary tract infection, site not specified
CPT/HCPCS: 36415; 71046; 80053; 85027

== ENCOUNTER → 2018-02-17 | Outpatient (CLI) | payer BC ==
--- NOTE | 2018-02-17 12:49 | RADIOLOGY REPORT (SQ) ---
EXAM DESCRIPTION: MRI RT LOWER JOINT WITHOUT COMPLETED DATE/TIME: 02/17/2018 12:16 pm REASON FOR STUDY: S83.241A OTHER TEAR OF MEDIAL MENISCUS, CURRENT INJURY, RIGHT KNEE, INITIAL S83.24 1A OTH TEAR OF MEDIAL MENISCUS, CURRENT INJURY, R KNEE COMPARISON: None. TECHNIQUE: Rightknee images acquired and stored on PACS. Multiplanar images include fat sensitive s equences as T1, water sensitive sequences as FST2 or STIR, cartilage sensitive sequences as FSPD, and gradient echo sequences. LIMITATIONS: None. FINDINGS: JOINT AND BURSAE: Small suprapatellar knee joint effusion. There is a ruptured Rodrigues's cy st, with synovial fluid tracking along the medial head gastrocnemius muscle best shown on axial image s 9-16. BONE CORTEX AND MARROW: No alteration of signal to suggest marrow replacement. No worrisome bone lesi ons. No occult fracture. ACL: Intact. No degeneration or ganglion cyst. PCL: Intact. MCL: Intact. No periligamentous edema or fluid. LCL: Intact. No periligamentous edema or fluid. MEDIAL MENISCUS: Diffuse horizontal tear throughout the medial meniscus. No parameniscal cyst. Best shown on coronal images 15-20 LATERAL MENISCUS: No tears. No abnormal signal. MEDIAL COMPARTMENT: Cartilage preserved. No bone bruises or reactive marrow edema. No osteophytes. LATERAL COMPARTMENT: Cartilage preserved. No bone bruises or reactive marrow edema. No osteophytes. PATELLA: Mild chondromalacia lateral patellar facet. No subchondral cysts. Medial and lateral retinac sharlene intact. EXTENSOR MECHANISM: Intact. Quadriceps and patella tendons normal. SOFT TISSUES: Adjacent muscles and subcutaneous tissues normal. Normal flow void in popliteal artery and vein. OTHER: No other significant finding. IMPRESSION: Diffuse horizontal tear medial meniscus Mild chondromalacia along the lateral patellar fat-sat Ruptured Rodrigues's cyst TECHNICAL DOCUMENTATION: JOB ID: [id number] [employer]- All Rights Reserved Reading location - IP/workstation name: [email or web address]
== END ==
LOC: RAD 11:23
PROVIDERS: ATTEND Orthopaedic Surgery
DX: S83.241A Other tear of medial meniscus, current injury, right knee, initial encounter (principal); X58.XXXA Exposure to other specified factors, initial encounter

== ENCOUNTER → 2018-03-02 | Outpatient (CLI) | payer BC ==
--- NOTE | 2018-03-02 12:28 | RADIOLOGY REPORT (SQ) ---
EXAM DESCRIPTION: CHEST PA/LATERAL COMPLETED DATE/TIME: 03/02/2018 12:09 pm REASON FOR STUDY: COPD,COUGH COMPARISON: 02/16/2018 EXAM PARAMETERS: NUMBER OF VIEWS: two views TECHNIQUE: Digital Frontal and Lateral radiographic views of the chest acquired. RADIATION DOSE: NA LIMITATIONS: none FINDINGS: LUNGS AND PLEURA: No opacities, masses or pneumothorax. No pleural effusion. MEDIASTINUM AND HILAR STRUCTURES: No masses or contour abnormalities. HEART AND VASCULAR STRUCTURES: Heart normal size. No evidence for failure. BONES: No acute findings. HARDWARE: None in the chest. OTHER: No other significant finding. IMPRESSION: 1. No significant interval changes since the prior examination dated 02/16/2018. No ac chelita findings. TECHNICAL DOCUMENTATION: JOB ID: [id number] [employer]- All Rights Reserved Reading location - IP/workstation name: [email or web address]
== END ==
LOC: OD 11:54
PROVIDERS: ATTEND Family Medicine Geriatric Medicine
DX: R05 Cough (principal); J44.9 Chronic obstructive pulmonary disease, unspecified
CPT/HCPCS: 71046

== ENCOUNTER → 2018-03-10 | Outpatient (CLI) | payer BC | LOC: OD 09:06 | PROVIDERS: ATTEND Family Medicine Geriatric Medicine | DX: I10 Essential (primary) hypertension (principal); J44.9 Chronic obstructive pulmonary disease, unspecified; Z79.899 Other long term (current) drug therapy; Z53.9 Procedure and treatment not carried out, unspecified reason ==

== ENCOUNTER 2018-03-20 07:56 | Day surgery (SDC) | payer BC ==
[~2018-03-20 07:56] MED LIST changes: +BUPIVACAINE HCL 0.25 % INJ/PF (2.5 MG/1 ML) 30 ML VIAL ONE; +CEFAZOLIN SODIUM 2 GM in DEXTROSE 5%-WATER 100 ML IV PRN; +DEXAMETHASONE SOD PHOSPHATE INJ 4 MG/1 ML VIAL ONE; +FENTANYL CITRATE INJ/PF 250 MCG/5 ML AMPULE ONE; +LACTATED RINGERS 1000 ML IV PRN; +LIDOCAINE 0.5% INJ-PF (5 MG/ML) 50 ML SDV SUBCUT PRN; +LIDOCAINE 2% INJ-PF (20 MG/ML) 10 ML AMPUL ONE; -LIDOCAINE 2% JELLY 5 ML TUBE ONE; +MIDAZOLAM 2 MG/2 ML INJ ONE; +ONDANSETRON HCL INJ/PF 4 MG/2 ML SDV ONE; +PROPOFOL INJ 200 MG/20 ML VIAL IV ONE; +SUGAMMADEX SODIUM 200 MG/2 ML SDV IV ONE
[2018-03-20] MEDS ORDERED: CEFOXITIN SODIUM 2 GM in DEXTROSE 5%-WATER 100 ML IV PRN (08:14)
[2018-03-20] MEDS ORDERED: MIDAZOLAM 2 MG/2 ML INJ ONE (09:01)
[2018-03-20] MEDS ORDERED: METOCLOPRAMIDE HCL INJ/PF 10 MG/2 ML SDV ONE (09:01)
[2018-03-20] MEDS ORDERED: ALBUTEROL SULFATE 0.083% NEB 2.5 MG/3 ML AMPUL NEB ONE (09:46)
[2018-03-20] MEDS ORDERED: MORPHINE SULFATE 10 MG/ML INJ IV PRN ×2 (11:25→12:38)
[2018-03-20] MEDS ORDERED: PROMETHAZINE HCL INJ 25 MG/1 ML VIAL IV PRN ×4 (11:25→12:38)
[2018-03-20] MEDS ORDERED: DIPHENHYDRAMINE HCL 50 MG/ML VIAL IV PRN ×2 (11:25→12:38)
[2018-03-20] MEDS ORDERED: MEPERIDINE HCL/PF INJ 25 MG/1 ML DISP.SYRIN IV PRN ×2 (11:25→12:38)
[2018-03-20] MEDS ORDERED: FENTANYL CITRATE INJ/PF 100 MCG/2 ML AMPUL IV PRN ×6 (11:25→12:38)
[2018-03-20] MEDS ORDERED: ONDANSETRON HCL INJ/PF 4 MG/2 ML SDV IV PRN ×3 (11:25→13:51)
[2018-03-20] MEDS: FENTANYL CITRATE INJ/PF 100 MCG/2 ML AMPUL ONE ×2 (13:50→14:00)
[2018-03-20] MEDS ORDERED: (PENDING PHARMACY ID) (Ranitidine Hcl [Zantac 150 Mg Tablet] 150 MG) PO PRN (13:57)
[2018-03-20] MEDS ORDERED: LEVALBUTEROL TARTRATE IH PRN (13:57)
[2018-03-20] MEDS ORDERED: ACETAMINOPHEN 1,000 MG/100 ML RTUPB IV ONE (14:21)
[2018-03-20] MEDS ORDERED: ROCURONIUM BROMIDE INJ 50 MG/5 ML VIAL IV ONE (15:02)
[2018-03-20] MEDS ORDERED: SUCCINYLCHOLINE CHLORIDE INJ 200 MG/10 ML VIAL ONE (15:02)
[2018-03-20] MEDS ORDERED: KETOROLAC TROMETHAMINE 60 MG/2 ML SDV ONE (15:02)
[2018-03-20] MEDS: SUCRALFATE 1 GM TABLET PO SCH ×2 (15:30→22:27)
[2018-03-20] MEDS: GABAPENTIN 300 MG CAPSULE PO SCH ×2 (15:30→22:27)
[2018-03-20] MEDS ORDERED: FAMOTIDINE 20 MG TABLET PO PRN (15:45)
[2018-03-20] MEDS: OXYCODONE HCL IR 5 MG TABLET PO PRN ×2 (17:40→22:27)
[2018-03-20] MEDS: LANSOPRAZOLE 30 MG TAB.RAP.DR PO SCH (17:40)
[2018-03-20] MEDS: DEXTROSE 5%-LACTATED RINGERS 1,000 ML IV PRN (17:40)
[2018-03-20] MEDS: AMLODIPINE BESYLATE 5 MG TABLET PO SCH (17:40)
[2018-03-20] MEDS ORDERED: (PENDING PHARMACY ID) (Glycopyrrolate/Formoterol Fum [Bevespi Aerosphere Inhaler] 2 PUFF) IH SCH (18:00)
[2018-03-20] MEDS: MORPHINE SULFATE 10 MG/ML INJ IV PRN (21:27)
[2018-03-20] MEDS ORDERED: (PENDING PHARMACY ID) (Ropinirole Hcl [Requip] 0.5 MG) PO SCH (22:00)
[2018-03-20] MEDS: ROPINIROLE HCL 0.25 MG TABLET PO SCH (22:27)
[2018-03-21] MEDS: DEXTROSE 5%-LACTATED RINGERS 1,000 ML IV PRN (01:34)
[2018-03-21] MEDS: OXYCODONE HCL IR 5 MG TABLET PO PRN ×5 (02:36→21:22)
[2018-03-21] MEDS: MORPHINE SULFATE 10 MG/ML INJ IV PRN ×2 (04:32→09:32)
[2018-03-21] MEDS: GABAPENTIN 300 MG CAPSULE PO SCH ×3 (06:18→21:22)
--- NOTE | 2018-03-21 09:10 | RADIOLOGY REPORT (SQ) ---
EXAM DESCRIPTION: CHEST SINGLE VIEW COMPLETED DATE/TIME: 03/21/2018 8:03 am REASON FOR STUDY: pain with inspiration, s/p hiatal hernia repair COMPARISON: 03/02/2018 EXAM PARAMETERS: NUMBER OF VIEWS: One view. TECHNIQUE: Single frontal radiographic view of the chest acquired. RADIATION DOSE: NA LIMITATIONS: None. FINDINGS: LUNGS AND PLEURA: Calcified granuloma right lung. No evidence of pulmonary edema or pneum onia. MEDIASTINUM AND HILAR STRUCTURES: No masses. Contour normal. HEART AND VASCULAR STRUCTURES: Heart normal in size. Normal vasculature. BONES: No acute findings. HARDWARE: None in the chest. OTHER: No other significant finding. IMPRESSION: NO ACUTE RADIOGRAPHIC FINDING IN THE CHEST. TECHNICAL DOCUMENTATION: JOB ID: [id number] [employer]- All Rights Reserved Reading location - IP/workstation name: [email or web address]
[2018-03-21] MEDS: LANSOPRAZOLE 30 MG TAB.RAP.DR PO SCH ×2 (09:37→16:18)
[2018-03-21] MEDS: LISINOPRIL 10 MG TABLET PO SCH (09:37)
[2018-03-21] MEDS: SUCRALFATE 1 GM TABLET PO SCH ×2 (09:38→11:49)
[2018-03-21] MEDS: MELOXICAM 7.5 MG TABLET PO SCH (10:26)
[2018-03-21] MEDS: BENZOCAINE/MENTHOL SORE THROAT LOZENGE BUCCAL PRN ×3 (11:49→17:58)
[2018-03-21] MEDS: DIPHENHYDRAMINE HCL 50 MG/ML VIAL IV PRN ×2 (14:04→21:28)
--- NOTE | 2018-03-21 14:17 | PDOC PROGRESS REPORT ---
Subjective Reason For Visit: S/P HIATAL HERNIA REPAIR Physical Exam Vital Signs: Temp Pulse Resp BP Pulse Ox 98.0 F 77 16 124/61 97 03/21/18 11:38 03/21/18 11:38 03/21/18 11:38 03/21/18 11:38 03/21/18 11:38 Intake & Output 03/20/18 03/21/18 03/22/18 06:59 06:59 06:59 Intake Total 5116 Output Total 2900 Balance 2216 Weight 113.9 kg Results Impressions: Chest X-Ray 03/21/18 06:00 IMPRESSION: NO ACUTE RADIOGRAPHIC FINDING IN THE CHEST. Assessment & Plan - Diagnosis (1) Gastroesophageal reflux disease due to diaphragmatic hernia Is this a current diagnosis for this admission?: Yes - Plan Summary Plan Summary: This is a 48-year-old female status post laparoscopic, robot-assisted Trey fundoplication with hiatal hernia repair. She is doing well today. She complains of abdominal discomfort at her incisions. She swallows liquids without difficulty. Her chest x-ray is without obvious abnormality. Continue pain medications. I will keep her in the hospital another day due to her uncontrolled pain. Ambulate, pulmonary toilet, out of bed.
--- NOTE | 2018-03-21 14:52 | Operative Report ---
Nonrecallable Operative Report DATE OF SURGERY: 03/20/18 PREOPERATIVE DIAGNOSIS: 1. Small hiatal hernia. 2. Refractory gastroesophageal reflux, despite maximal medical therapy. POSTOPERATIVE DIAGNOSIS: Same as above OPERATION: 1. Robot-assisted laparoscopic hiatal hernia repair. 2. Trey fundoplication. 3. EGD SURGEON: DAKOTA ALMENDAREZ ANESTHESIA: GA TISSUE REMOVED OR ALTERED: None COMPLICATIONS: None apparent ESTIMATED BLOOD LOSS: Minimal PROCEDURE: Drains/implants: None. Procedure in detail: After informed consent was obtained, the patient was brought to the operating room and laid in the supine position. The area of the abdomen was prepped and draped in normal sterile fashion. A 15 blade scalpel was used to create an incision approximately 2 cm superior to and lateral to the umbilicus. Dissection was carried through the subcutaneous tissue using blunt dissection. The anterior rectus sheath was divided using a 15 blade scalpel. The rectus muscle was moved laterally and the posterior rectus sheath was also divided sharply. The balloon trocar was inserted, pneumoperitoneum was achieved. 8 mm robotic trochars were then placed under direct laparoscopic visualization in the left upper quadrant, left lateral abdomen, and right upper quadrant. A 5 mm trocar was placed in the right lateral abdomen for the liver retractor. Liver retractor was then placed inside the patient and used to retract the left lobe of the liver anteriorly. The robot was then brought over the patient and docked appropriately. I then assumed my position at the surgeon's console. Dissection was begun at the pars flaccida. This was taken down using electrocautery. The right grace of the diaphragm was identified. It was cleaned using blunt dissection and electrocautery. The dissection was taken posteriorly to the confluence of the right and left crura. The dissection was carried posteriorly using blunt dissection and electrocautery and up the left crura. Once this was completed, attention was turned to division of the short gastric arteries. The short gastric arteries were divided using the vessel sealing robotic device. This was done up to the left grace of the diaphragm. At this time the medial and lateral dissections were joined. A Deanna drain was passed posterior to the esophagus in order to facilitate retraction. The anterior hiatal dissection was then undertaken, taking great care not to injure the vagus nerve. The dissection was taken cranially in order to ensure approximately 2-3 cm of intra- abdominal esophagus. Once this was completed a 58 Slovenian bougie was placed into the esophagus and used as a place morales. The hiatus was then closed posteriorly using 2-0 Ethibond suture in adceyd-iq-zvmsp fashion. 2 sutures were used. The hiatal hernia was not excessively large, and mesh was felt unnecessary. Once this was completed, the fundus was wrapped posteriorly and found to lie in very good place. A 58 Slovenian bougie was removed and the fundoplication sutures were placed. The first fundoplication suture was placed, incorporating the esophagus. 3 more sutures were performed ensuring a "floppy"Trey fundoplication. Once this was completed, attention was turned to the EGD. I guided the flexible gastroscope down the esophagus, and into the stomach. The scope passed easily through the hiatus. A retroflexion maneuver was performed in the stomach ensuring that the fundoplication was indeed intact. The scope was pulled up into the distal esophagus. The Z line appeared to reside within the abdominal cavity. The hiatus easily accepted the scope. Was no sign of significant stricture. There was no evidence of injury, bleeding, or damage to the stomach or esophagus. Once this was completed, the scope was pulled up the remainder of the esophagus. It was removed from the oropharynx, and this portion of the procedure was concluded. I then scrubbed back into the case. The robot was undocked, and the liver retractor was removed. The 12 mm trocar was removed. The supraumbilical fascia was closed using 0 Vicryl suture in gfwjan-dv-tlnhl fashion with the assistance of the Endo Close device. Once this was completed the 8 and 5 mm trochars were removed. Pneumoperitoneum was relieved. The overlying skin was closed using 4-0 Vicryl Rapide suture in subcuticular fashion. Dressings were placed, and the procedure was concluded. All sponge, instrument, and needle counts were correct x2. Condition: Stable.
[2018-03-21] MEDS: SUCRALFATE SUSP 1 GM/10 ML UDCUP PO SCH ×2 (16:22→21:22)
[2018-03-21] MEDS: AMLODIPINE BESYLATE 5 MG TABLET PO SCH (17:57)
[2018-03-21] MEDS: ROPINIROLE HCL 0.25 MG TABLET PO SCH (21:21)
[2018-03-22] MEDS: OXYCODONE HCL IR 5 MG TABLET PO PRN ×2 (03:09→08:30)
[2018-03-22] MEDS: GABAPENTIN 300 MG CAPSULE PO SCH (06:36)
[2018-03-22] MEDS: LANSOPRAZOLE 30 MG TAB.RAP.DR PO SCH (08:30)
[2018-03-22] MEDS: LISINOPRIL 10 MG TABLET PO SCH (08:30)
[2018-03-22] MEDS: SUCRALFATE SUSP 1 GM/10 ML UDCUP PO SCH (08:33)
[2018-03-22] MEDS: MELOXICAM 7.5 MG TABLET PO SCH (09:08)
[2018-03-22 10:24] VITALS: BP 110/56
--- NOTE | 2018-03-25 09:57 | DISCHARGE SUMMARY E ---
Discharge Summary NAME: FILI COHEN : 1970 AGE: 48Y ADMITTED: 03/20/2018 DISCHARGED: 03/22/2018 REASON FOR ADMISSION: Status post hiatal hernia repair. SUMMARY OF HOSPITALIZATION: The patient is a 48-year-old white female who was brought to ambulatory surgery for laparoscopic hiatal hernia repair with Trey fundoplication and EGD by Dr. Gavin Mcgowan. The procedure was performed without complication. Postoperatively, the patient did well, had a diet that was advanced and tolerated well. On the first postoperative day, the patient was getting about well, voiding, had adequate pain control, and was ready for discharge home. The patient was discharged home in the care of her family. Follow up with Dr. Mcgowan in 1-2 weeks, resume preoperative medications, diet and activity. FINAL DIAGNOSIS: GERD status post hiatal hernia repair with laparoscopic Trey fundoplication by Dr. Mcgowan. DISPOSITION: The patient is discharged home on a modified diet with prescriptions for pain medication, shower, and instructions to follow up at [facility] in approximately 1-2 weeks. DICTATING PHYSICIAN: WALLACE WHITE M.D. [id number] [facility]#: [id number] ID: [id number] JOB#: [id number] ACCT: [id number] cc:Angelica ARNOLD M.D. >
== END 2018-03-22 11:00 | disposition home or self-care (01) ==
LOC: OROUT 07:56 → 4N 15:01 → OROUT 03-22 11:00
PROVIDERS: ATTEND Surgery
DX: K44.9 Diaphragmatic hernia without obstruction or gangrene (principal); K21.9 Gastro-esophageal reflux disease without esophagitis; J44.9 Chronic obstructive pulmonary disease, unspecified; R06.02 Shortness of breath; Z79.899 Other long term (current) drug therapy; I10 Essential (primary) hypertension; E66.9 Obesity, unspecified; K58.9 Irritable bowel syndrome, unspecified; G57.90 Unspecified mononeuropathy of unspecified lower limb; R91.8 Other nonspecific abnormal finding of lung field; Z87.440 Personal history of urinary (tract) infections; Z87.891 Personal history of nicotine dependence
CPT/HCPCS: 43280; S2900; 36415; 790; 86850; 86900; 86901; 94799; J0131; J0330; J0694; J1100; J1200; J1885; J2250; J2270; J2405; J2704; J2765; J3010; J3490

== ENCOUNTER → 2018-03-24 | Outpatient (CLI) | payer BC | LOC: OD 07:07 | PROVIDERS: ATTEND Family Medicine Geriatric Medicine | DX: Z53.9 Procedure and treatment not carried out, unspecified reason (principal); I10 Essential (primary) hypertension; J44.9 Chronic obstructive pulmonary disease, unspecified ==

== ENCOUNTER → 2018-03-26 | Outpatient (CLI) | payer BC ==
[2018-03-26 10:29] LABS: ABSOLUTE BASOPHILS # (AUTO) 0.1 10^3/uL (0.0-0.2); ABSOLUTE EOSINOPHILS # (AUTO) 0.5 10^3/uL (0.0-0.6); ABSOLUTE LYMPHOCYTES (AUTO) 1.1 10^3/uL (0.5-4.7); ABSOLUTE MONOCYTES (AUTO) 0.4 10^3/uL (0.1-1.4); ABSOLUTE NEUT (AUTO) 3.5 10^3/uL (1.7-8.2); BASOPHILS % (AUTO) 1.4 % (0-2); EOSINOPHILS % (AUTO) 8.9 % (0-6); HEMATOCRIT 38.9 % (36.0-47.0); HEMOGLOBIN 13.3 g/dL (12.0-15.5); LYMPHOCYTES % (AUTO) 19.4 % (13-45); MEAN CORPUSCULAR HEMOGLOBIN 29.9 pg (27.0-33.4); MEAN CORPUSCULAR HGB CONC 34.2 g/dL (32.0-36.0); MEAN CORPUSCULAR VOLUME 87 fl (80-97); MONOCYTES % (AUTO) 7.8 % (3-13); PLATELET COUNT 285 10^3/uL (150-450); RED BLOOD COUNT 4.46 10^6/uL (3.72-5.28); RED CELL DISTRIBUTION WIDTH 13.1 % (11.5-14.0); SEGMENTED NEUTROPHILS % (AUTO) 62.5 % (42-78); TOTAL CELLS COUNTED % (AUTO) 100 %; WHITE BLOOD COUNT 5.6 10^3/uL (4.0-10.5)
[2018-03-26 10:56] LABS: ALANINE AMINOTRANSFERASE 94 U/L (9-52); ALKALINE PHOSPHATASE 105 U/L (38-126); ANION GAP 9 (5-19); ASPARTATE AMINO TRANSFERASE 58 U/L (14-36); BILIRUBIN,DIRECT 0.3 mg/dL (0.0-0.4); BILIRUBIN,TOTAL 0.8 mg/dL (0.2-1.3); BLOOD UREA NITROGEN 14 mg/dL (7-20); CALCIUM 9.9 mg/dL (8.4-10.2); CARBON DIOXIDE 26 mmol/L (22-30); CHLORIDE 104 mmol/L (98-107); GLUCOSE 99 mg/dL (75-110); POTASSIUM 4.6 mmol/L (3.6-5.0); SODIUM 139.1 mmol/L (137-145); TOTAL PROTEIN 6.5 g/dL (6.3-8.2)
== END ==
LOC: OD 09:23
PROVIDERS: ATTEND Family Medicine Geriatric Medicine
DX: I10 Essential (primary) hypertension (principal); J44.9 Chronic obstructive pulmonary disease, unspecified
CPT/HCPCS: 36415; 80053; 85025

== ENCOUNTER → 2018-04-13 | Outpatient (CLI) | payer BC ==
--- NOTE | 2018-04-13 09:49 | RADIOLOGY REPORT (SQ) ---
EXAM DESCRIPTION: CT CHEST WITHOUT COMPLETED DATE/TIME: 04/13/2018 8:07 am REASON FOR STUDY: OTHER FORMS OF DYSPNEA (R06.09) R06.09 OTHER FORMS OF DYSPNEA COMPARISON: CT chest 05/06/2017 TECHNIQUE: CT scan performed of the chest without intravenous contrast. Images reviewed with lung, soft tissue and bone windows. Reconstructed coronal and sagittal MPR images reviewed. All images st ored on PACS. All CT scanners at this facility use dose modulation, iterative reconstruction, and/or weight based d osing when appropriate to reduce radiation dose to as low as reasonably achievable (ALARA). [facility]: Dose Right [facility]: CareDose [facility]: Dose Right [facility]: Teradose 4D [facility]: [employer] RADIATION DOSE: CT Rad equipment meets quality standard of care and radiation dose reduction techniq ues were employed. CTDIvol: 10.3 mGy. DLP: 401 mGy-cm. mGy. LIMITATIONS: No technical limitations. FINDINGS: LUNGS AND PLEURA: Stable postinflammatory changes, with bandlike scarring in the right micah g apex, and an 8 mm calcified granuloma in the right upper lobe on axial image 39. Minimal pleural t hickening along the right posterior costophrenic sulcus, stable. No acute infiltrates. No pleural effusion or pneumothorax. Left lung unremarkable. HILAR AND MEDIASTINAL STRUCTURES: Benign stable calcified 2.4 x 1 cm precarinal lymph node on axial i mage 24. HEART AND VASCULAR STRUCTURES: No aneurysm. No pericardial effusion. UPPER ABDOMEN: Post cholecystectomy THYROID AND OTHER SOFT TISSUES: No masses. No adenopathy. BONES: No significant finding. HARDWARE: None in the chest. OTHER: No other significant findings. IMPRESSION: Stable right upper lobe calcified granuloma and calcified precarinal lymph nodes from ol d granulomatous disease. No acute findings TECHNICAL DOCUMENTATION: JOB ID: [id number] Quality ID # 436: Final reports with documentation of one or more dose reduction techniques (e.g., Au tomated exposure control, adjustment of the mA and/or kV according to patient size, use of iterative reconstruction technique) 2010 [employer]- All Rights Reserved Reading location - IP/workstation name: [email or web address]
== END ==
LOC: RAD 07:52
PROVIDERS: ATTEND Internal Medicine Pulmonary Disease
DX: J84.10 Pulmonary fibrosis, unspecified (principal); R06.09 Other forms of dyspnea
CPT/HCPCS: 71250

== ENCOUNTER 2018-04-16 09:53 | Day surgery (SDC) | payer BC, OTHER ==
[2018-04-15 09:49] LABS: APPEARANCE,URINE SLIGHTLY-CLOUDY; BILIRUBIN,URINE NEGATIVE (NEGATIVE); COLOR,URINE AMBER; GLUCOSE, URINE NEGATIVE (NEGATIVE); KETONES,URINE NEGATIVE (NEGATIVE); LEUKOCYTE ESTERASE,URINE NEGATIVE (NEGATIVE); NITRITE,URINE NEGATIVE (NEGATIVE); PROTEIN,URINE NEGATIVE (NEGATIVE); URINE SPECIFIC GRAVITY 1.028; UROBILINOGEN,URINE NEGATIVE mg/dL (<2.0)
--- NOTE | 2018-04-15 10:34 | RADIOLOGY REPORT (SQ) ---
EXAM DESCRIPTION: CHEST PA/LATERAL COMPLETED DATE/TIME: 04/15/2018 10:17 am REASON FOR STUDY: PRE-OP COMPARISON: 03/21/2018 EXAM PARAMETERS: NUMBER OF VIEWS: two views TECHNIQUE: Digital Frontal and Lateral radiographic views of the chest acquired. RADIATION DOSE: NA LIMITATIONS: none FINDINGS: LUNGS AND PLEURA: No opacities, masses or pneumothorax. No pleural effusion. MEDIASTINUM AND HILAR STRUCTURES: No masses or contour abnormalities. HEART AND VASCULAR STRUCTURES: Heart normal size. No evidence for failure. BONES: No acute findings. HARDWARE: None in the chest. OTHER: Prior cholecystectomy. IMPRESSION: NO SIGNIFICANT RADIOGRAPHIC FINDING IN THE CHEST. TECHNICAL DOCUMENTATION: JOB ID: [id number] [employer]- All Rights Reserved Reading location - IP/workstation name: [email or web address]
[2018-04-15 11:04] LABS: HEMATOCRIT 40.1 % (36.0-47.0); HEMOGLOBIN 13.8 g/dL (12.0-15.5); MEAN CORPUSCULAR HGB CONC 34.4 g/dL (32.0-36.0); MEAN CORPUSCULAR VOLUME 87 fl (80-97); PLATELET COUNT 187 10^3/uL (150-450); RED CELL DISTRIBUTION WIDTH 13.4 % (11.5-14.0); WHITE BLOOD COUNT 5.1 10^3/uL (4.0-10.5)
--- NOTE | 2018-04-15 11:07 | EKG REPORT ---
SEVERITY:- NORMAL ECG - SINUS RHYTHM : Confirmed by: Vito Adames MD 15-Apr-2018 11:06:31
[2018-04-15 11:33] LABS: ANION GAP 8 (5-19); BLOOD UREA NITROGEN 16 mg/dL (7-20); CARBON DIOXIDE 26 mmol/L (22-30); CHLORIDE 106 mmol/L (98-107); GLUCOSE 94 mg/dL (75-110); POTASSIUM 4.7 mmol/L (3.6-5.0); SODIUM 140.4 mmol/L (137-145)
[~2018-04-16 09:53] MED LIST changes: -BUPIVACAINE HCL 0.25 % INJ/PF (2.5 MG/1 ML) 30 ML VIAL ONE; -DEXAMETHASONE SOD PHOSPHATE INJ 4 MG/1 ML VIAL ONE; -FENTANYL CITRATE INJ/PF 250 MCG/5 ML AMPULE ONE; -LIDOCAINE 2% INJ-PF (20 MG/ML) 10 ML AMPUL ONE; -MIDAZOLAM 2 MG/2 ML INJ ONE; -ONDANSETRON HCL INJ/PF 4 MG/2 ML SDV ONE; -PROPOFOL INJ 200 MG/20 ML VIAL IV ONE; -SUGAMMADEX SODIUM 200 MG/2 ML SDV IV ONE
[2018-04-16] MEDS ORDERED: BUPIVACAINE HCL 0.5 % INJ/PF 30 ML SDV ONE (13:46)
[2018-04-16] MEDS ORDERED: MIDAZOLAM 2 MG/2 ML INJ ONE (13:47)
[2018-04-16] MEDS ORDERED: HYDROMORPHONE HCL INJ/PF 2 MG/ML AMPULE ONE (13:47)
[2018-04-16] MEDS ORDERED: LIDOCAINE 2% INJ-PF (20 MG/ML) 10 ML AMPUL ONE (13:47)
[2018-04-16] MEDS ORDERED: ACETAMINOPHEN 1,000 MG/100 ML RTUPB IV ONE (13:47)
[2018-04-16] MEDS ORDERED: PROPOFOL INJ 200 MG/20 ML VIAL IV ONE (13:47)
[2018-04-16] MEDS ORDERED: DEXAMETHASONE SOD PHOSPHATE INJ 4 MG/1 ML VIAL ONE (13:47)
[2018-04-16] MEDS ORDERED: ONDANSETRON HCL INJ/PF 4 MG/2 ML SDV ONE (13:47)
[2018-04-16] MEDS ORDERED: EPINEPHRINE INJ/PF 1 MG/1 ML AMPULE ONE (14:28)
[2018-04-16] MEDS ORDERED: DIPHENHYDRAMINE HCL 50 MG/ML VIAL IV PRN (14:34)
[2018-04-16] MEDS ORDERED: OXYCODONE-ACETAMINOPHEN 5-325 MG TABLET PO PRN ×4 (14:34→15:06)
[2018-04-16] MEDS ORDERED: ONDANSETRON HCL INJ/PF 4 MG/2 ML SDV IV PRN (14:34)
[2018-04-16] MEDS ORDERED: MEPERIDINE HCL/PF INJ 25 MG/1 ML DISP.SYRIN IV PRN (14:34)
[2018-04-16] MEDS ORDERED: FENTANYL CITRATE INJ/PF 100 MCG/2 ML AMPUL IV PRN ×3 (14:34)
[2018-04-16] MEDS ORDERED: PROMETHAZINE HCL INJ 25 MG/1 ML VIAL IV PRN ×2 (14:34)
[2018-04-16] MEDS: FENTANYL CITRATE INJ/PF 100 MCG/2 ML AMPUL ONE ×2 (15:03→15:08)
--- NOTE | 2018-04-16 15:04 | Discharge Summary ---
Discharge Summary (SDC) - Discharge Final Diagnosis: Right knee arthroscopy with partial medial meniscectomy and chondroplasty of all 3 compartments Date of Surgery: 04/16/18 Discharge Date: 04/16/18 Condition: Good Treatment or Instructions: Patient instructed to follow up in 10-14 days. Patient instructed to keep dressing dry clean and intact for 4 days and then allowed to remove. At that point patient can shower and apply Band-Aids as needed. Patient can weight-bear as tolerated and do range of motion exercises as tolerated. Crutches for support and safety. Can wean crutches once stable on his feet. Patient instructed to call the office if patient develops fevers chills redness and drainage from the surgical sites. Prescriptions: Oxycodone HCl/Acetaminophen [Percocet 5-325 mg Tablet] 1 - 2 tab PO ASDIR PRN #40 tablet PRN Reason: Referrals: ERIKA AGUSTIN MD [Primary Care Provider] - Discharge Diet: As Tolerated Respiratory Treatments at Home: Deep Breathing/Coughing Discharge Activity: No Driving - While taking narcotics, No Lifting/Push/Pulling, Slowly Increase Activity Home Care Assistance: None Needed Adaptive Devices on Discharge: Axillary Crutches Report the Following to Your Physician Immediately: Shortness of Breath, Vomiting, Increase in Pain, Fever over 101 Degrees, Unusual Bleeding, Redness, Warmth, Drainage-Yellow, Drainage-Montoya, Drainage-Green, Drainage-Foul Smelling
[2018-04-16] MEDS ORDERED: PROMETHAZINE HCL INJ 25 MG/1 ML VIAL ONE (15:25)
[2018-04-16 17:11] VITALS: BP 128/77
--- NOTE | 2018-05-21 16:33 | Operative Report ---
Operative Report DATE OF SURGERY: 04/16/18 PREOPERATIVE DIAGNOSIS: Right knee medial meniscus tear and chondromalacia POSTOPERATIVE DIAGNOSIS: Same OPERATION: Right knee arthroscopy with partial medial meniscectomy and chondroplasty of all 3 compartments SURGEON: RAJEEV HUBBARD ANESTHESIA: GA TISSUE REMOVED OR ALTERED: Shavings COMPLICATIONS: None ESTIMATED BLOOD LOSS: 10 INTRAOPERATIVE FINDINGS: as above PROCEDURE: Patient was brought to the operating room and induced and intubated in supine position. A tourniquet was applied to the right lower extremity. Timeout was done identifying the right knee was the correct site. .25% plain Marcaine was injected into anticipated portal sites. The extremity was elevated and the tourniquet was inflated at 300 mmHg. 11 blade was used to establish the anterolateral portal. Scope was introduced. At this point I established my anteromedial portal. Capsule was distended with sterile saline solution and a diagnostic scope was done showing patient had chondromalacia of all 3 compartments. Grade 2 and 3 changes of the patella and femoral trochlea as well as the femoral condyle and tibial plateau. The lateral compartment which is grade 1 changes and grade 2. Some proceeded to use the 4.0 mm shaver to do my chondroplasty of all 3 compartments. Any loose piece of cartilage was then resected successfully and no free edges were left behind. I turned my attention to the medial compartment where I noted a degenerative complex tear of the medial meniscus. I used the meniscal biter and 4.0mm shaver to resect majority of the posterior horn of the medial meniscus. With the Shaver I smooth out the edges of the meniscus which gave a good stable construct. I this point redirected my camera to the notch and visualized the anterior cruciate ligament graft which was intact as well as the PCL which showed to be intact. I then placed the extremity in a [id number] and at this point saw the lateral meniscus was intact with no noticeable tears. Popliteal hiatus was intact. At this point the fluid of the knee was removed and I proceeded to close the 2 portal sites with 3-0 nylon. Tourniquet was let down. The portal sites were covered with Xeroform 4 x 4 dressing and ABD pad followed by a soft roll. I overwrapped it with an Manolo bandage. Drapes were cut and removed. Patient was successfully extubated and sent to PACU in stable condition.
== END 2018-04-16 17:10 | disposition home or self-care (01) ==
LOC: OROUT 09:53
PROVIDERS: ATTEND Orthopaedic Surgery
DX: S83.241A Other tear of medial meniscus, current injury, right knee, initial encounter (principal); X58.XXXA Exposure to other specified factors, initial encounter; M22.41 Chondromalacia patellae, right knee; M17.11 Unilateral primary osteoarthritis, right knee; M25.561 Pain in right knee; I10 Essential (primary) hypertension; J44.9 Chronic obstructive pulmonary disease, unspecified; K21.9 Gastro-esophageal reflux disease without esophagitis; K44.9 Diaphragmatic hernia without obstruction or gangrene; Z79.899 Other long term (current) drug therapy; Z79.891 Long term (current) use of opiate analgesic; Z79.51 Long term (current) use of inhaled steroids
CPT/HCPCS: 93005; 36415; 85027; 80048; 81001; 71046; 93010; 29881; J2250; J3490 ×2; J0690; J1100; J0171; J3010; J1170; J2550; J2405; J2704; J0131; 1400

== ENCOUNTER → 2018-04-24 | Outpatient (CLI) | payer BC ==
[2018-04-24 11:34] LABS: ALANINE AMINOTRANSFERASE 79 U/L (9-52); ALBUMIN 4.2 g/dL (3.5-5.0); ALKALINE PHOSPHATASE 83 U/L (38-126); ASPARTATE AMINO TRANSFERASE 49 U/L (14-36); BILIRUBIN,DIRECT 0.2 mg/dL (0.0-0.4); BILIRUBIN,TOTAL 0.7 mg/dL (0.2-1.3); TOTAL PROTEIN 6.3 g/dL (6.3-8.2)
== END ==
LOC: OD 10:39
PROVIDERS: ATTEND Internal Medicine
DX: R74.0 Nonspecific elevation of levels of transaminase and lactic acid dehydrogenase [LDH] (principal)
CPT/HCPCS: 36415; 80076

== ENCOUNTER → 2018-05-05 | Outpatient (CLI) | payer BC, OTHER ==
--- NOTE | 2018-05-05 14:37 | RADIOLOGY REPORT (SQ) ---
EXAM DESCRIPTION: CHEST PA/LATERAL COMPLETED DATE/TIME: 05/05/2018 2:28 pm REASON FOR STUDY: ACUTE BRONCHITIS; COPD COMPARISON: 04/15/2017 EXAM PARAMETERS: NUMBER OF VIEWS: two views TECHNIQUE: Digital Frontal and Lateral radiographic views of the chest acquired. RADIATION DOSE: NA LIMITATIONS: none FINDINGS: LUNGS AND PLEURA: No opacities, masses or pneumothorax. No pleural effusion. MEDIASTINUM AND HILAR STRUCTURES: No masses or contour abnormalities. HEART AND VASCULAR STRUCTURES: Heart normal size. No evidence for failure. BONES: No acute findings. HARDWARE: None in the chest. OTHER: Prior cholecystectomy. IMPRESSION: No focal airspace disease or other evidence of acute cardiopulmonary process. TECHNICAL DOCUMENTATION: JOB ID: [id number] [employer]- All Rights Reserved Reading location - IP/workstation name: [email or web address]
== END ==
LOC: OD 14:00
PROVIDERS: ATTEND Family Medicine Geriatric Medicine
DX: J20.9 Acute bronchitis, unspecified (principal); J44.9 Chronic obstructive pulmonary disease, unspecified
CPT/HCPCS: 71046

== ENCOUNTER → 2018-06-22 | Outpatient (CLI) | payer BC ==
[2018-06-22 12:36] LABS: ALANINE AMINOTRANSFERASE 46 U/L (9-52); ASPARTATE AMINO TRANSFERASE 29 U/L (14-36)
== END ==
LOC: OD 10:33
PROVIDERS: ATTEND Family Medicine Geriatric Medicine
DX: R74.8 Abnormal levels of other serum enzymes (principal)
CPT/HCPCS: 36415; 84450; 84460

== ENCOUNTER → 2018-10-12 | Outpatient (CLI) | payer BC ==
[2018-10-12 11:04] LABS: ABSOLUTE BASOPHILS # (AUTO) 0.1 10^3/uL (0.0-0.2); ABSOLUTE EOSINOPHILS # (AUTO) 0.2 10^3/uL (0.0-0.6); ABSOLUTE LYMPHOCYTES (AUTO) 1.8 10^3/uL (0.5-4.7); ABSOLUTE MONOCYTES (AUTO) 0.6 10^3/uL (0.1-1.4); ABSOLUTE NEUT (AUTO) 3.8 10^3/uL (1.7-8.2); BASOPHILS % (AUTO) 1.5 % (0-2); EOSINOPHILS % (AUTO) 3.4 % (0-6); HEMOGLOBIN 14.1 g/dL (12.0-15.5); LYMPHOCYTES % (AUTO) 28.5 % (13-45); MEAN CORPUSCULAR HEMOGLOBIN 29.1 pg (27.0-33.4); MEAN CORPUSCULAR HGB CONC 33.6 g/dL (32.0-36.0); MEAN CORPUSCULAR VOLUME 87 fl (80-97); MONOCYTES % (AUTO) 8.5 % (3-13); PLATELET COUNT 254 10^3/uL (150-450); RED BLOOD COUNT 4.85 10^6/uL (3.72-5.28); RED CELL DISTRIBUTION WIDTH 13.3 % (11.5-14.0); SEGMENTED NEUTROPHILS % (AUTO) 58.1 % (42-78); TOTAL CELLS COUNTED % (AUTO) 100 %; WHITE BLOOD COUNT 6.5 10^3/uL (4.0-10.5)
[2018-10-12 11:28] LABS: ALANINE AMINOTRANSFERASE 29 U/L (9-52); ALBUMIN 4.3 g/dL (3.5-5.0); ALKALINE PHOSPHATASE 96 U/L (38-126); ANION GAP 9 (5-19); ASPARTATE AMINO TRANSFERASE 28 U/L (14-36); BILIRUBIN,DIRECT 0.3 mg/dL (0.0-0.4); BILIRUBIN,TOTAL 0.7 mg/dL (0.2-1.3); BLOOD UREA NITROGEN 15 mg/dL (7-20); CALCIUM 10.1 mg/dL (8.4-10.2); CARBON DIOXIDE 27 mmol/L (22-30); CHLORIDE 104 mmol/L (98-107); GLUCOSE 98 mg/dL (75-110); POTASSIUM 4.7 mmol/L (3.6-5.0); SODIUM 139.8 mmol/L (137-145); TOTAL PROTEIN 6.9 g/dL (6.3-8.2)
== END ==
LOC: OD 10:33
PROVIDERS: ATTEND Family Medicine Geriatric Medicine
DX: I10 Essential (primary) hypertension (principal); J44.9 Chronic obstructive pulmonary disease, unspecified; R63.1 Polydipsia; Z79.899 Other long term (current) drug therapy
CPT/HCPCS: 36415; 80053; 83735; 85025

== ENCOUNTER → 2018-10-13 | Outpatient (CLI) | payer BC ==
--- NOTE | 2018-10-13 15:37 | RADIOLOGY REPORT (SQ) ---
EXAM DESCRIPTION: CT CHEST WITHOUT COMPLETED DATE/TIME: 10/13/2018 1:37 pm REASON FOR STUDY: R59.0 LOCALIZED ENLARGED LYMPH NODES R59.0 LOCALIZED ENLARGED LYMPH NODES COMPARISON: CT chest 05/06/2017, 04/13/2018 TECHNIQUE: CT scan performed of the chest without intravenous contrast. Images reviewed with lung, soft tissue and bone windows. Reconstructed coronal and sagittal MPR images reviewed. All images st ored on PACS. All CT scanners at this facility use dose modulation, iterative reconstruction, and/or weight based d osing when appropriate to reduce radiation dose to as low as reasonably achievable (ALARA). [facility]: Dose Right [facility]: CareDose [facility]: Dose Right [facility]: Teradose 4D [facility]: [employer] RADIATION DOSE: CT Rad equipment meets quality standard of care and radiation dose reduction techniq ues were employed. CTDIvol: 10.0 mGy. DLP: 403 mGy-cm. mGy. LIMITATIONS: No technical limitations. FINDINGS: LUNGS AND PLEURA: Again, there is minimal pleural thickening along the upper aspect of the right major fissure and in the right posterior costophrenic sulcus. In the right upper lobe, a calcified granuloma 8 mm in size is present on axial image 38. This is un changed from prior studies. No acute infiltrates. No pleural effusion or pneumothorax. HILAR AND MEDIASTINAL STRUCTURES: Benign calcified right hilar and mediastinal lymph nodes are presen t unchanged from 05/06/2017. No further specific follow up is required. HEART AND VASCULAR STRUCTURES: No aneurysm. No pericardial effusion. UPPER ABDOMEN: Clips right upper quadrant post cholecystectomy. Small hiatal hernia THYROID AND OTHER SOFT TISSUES: No masses. No adenopathy. BONES: No significant finding. HARDWARE: None in the chest. OTHER: No other significant findings. IMPRESSION: Benign changes from old granulomatous disease, with a calcified granuloma in the right u pper lobe, and benign calcified right hilar and mediastinal lymph nodes. Findings are unchanged from April 2017 TECHNICAL DOCUMENTATION: JOB ID: [id number] Quality ID # 436: Final reports with documentation of one or more dose reduction techniques (e.g., Au tomated exposure control, adjustment of the mA and/or kV according to patient size, use of iterative reconstruction technique) 2010 [employer]- All Rights Reserved Reading location - IP/workstation name: [email or web address]-
== END ==
LOC: RAD 13:18
PROVIDERS: ATTEND Internal Medicine Pulmonary Disease
DX: R59.0 Localized enlarged lymph nodes (principal)
CPT/HCPCS: 71250

== ENCOUNTER → 2018-11-23 | Outpatient (CLI) | payer BC ==
--- NOTE | 2018-11-23 15:39 | RADIOLOGY REPORT (SQ) ---
EXAM DESCRIPTION: ANKLE RIGHT COMPLETE COMPLETED DATE/TIME: 11/23/2018 3:31 pm REASON FOR STUDY: LT KNEE PAIN; RT ANKLE PAIN M25.562 PAIN IN LEFT KNEE M25.571 PAIN IN RIGHT ANKL E AND JOINTS OF RIGHT FOOT COMPARISON: None. NUMBER OF VIEWS: Three views. TECHNIQUE: AP, lateral, and oblique radiographic images acquired of the right ankle. LIMITATIONS: None. FINDINGS: MINERALIZATION: Normal. BONES: No fracture dislocation plate plantar calcaneal spur. JOINTS: No effusions. SOFT TISSUES: No soft tissue swelling. No foreign body. OTHER: No other significant finding. IMPRESSION: Calcaneal spur. TECHNICAL DOCUMENTATION: JOB ID: [id number] [employer]- All Rights Reserved Reading location - IP/workstation name: [email or web address]
--- NOTE | 2018-11-23 16:40 | RADIOLOGY REPORT (SQ) ---
EXAM DESCRIPTION: KNEE LEFT 4 VIEWS COMPLETED DATE/TIME: 11/23/2018 3:31 pm REASON FOR STUDY: LT KNEE PAIN; RT ANKLE PAIN M25.562 PAIN IN LEFT KNEE M25.571 PAIN IN RIGHT ANKL E AND JOINTS OF RIGHT FOOT COMPARISON: None. NUMBER OF VIEWS: Four views. TECHNIQUE: AP, lateral, and both oblique radiographic images acquired of the left knee. LIMITATIONS: None. FINDINGS: MINERALIZATION: Normal. BONES: No acute fracture or dislocation. No worrisome bone lesions. JOINT: Small effusion. SOFT TISSUES: No soft tissue swelling. No radio-opaque foreign body. OTHER: No other significant finding. IMPRESSION: Small joint effusion. TECHNICAL DOCUMENTATION: JOB ID: [id number] [employer]- All Rights Reserved Reading location - IP/workstation name: [email or web address]
== END ==
LOC: OD 15:14
PROVIDERS: ATTEND Family Medicine Geriatric Medicine
DX: M25.462 Effusion, left knee (principal); M25.562 Pain in left knee; M25.571 Pain in right ankle and joints of right foot; M77.31 Calcaneal spur, right foot

== ENCOUNTER → 2019-01-11 | Outpatient (CLI) | payer BC ==
--- NOTE | 2019-01-11 13:35 | RADIOLOGY REPORT (SQ) ---
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 TECHNIQUE: CT scanogram of the bilateral lower extremities is performed including pelvis to ankles. Measurements of femur, tibia, and entire lower extremities performed by the radiologist and saved to PACS. All CT scanners at this facility use dose modulation, iterative reconstruction, and/or weight based d osing when appropriate to reduce radiation dose to as low as reasonably achievable (ALARA). [facility]: Dose Right [facility]: CareDose [facility]: Dose Right [facility]: Teradose 4D [facility]: [employer] RADIATION DOSE: mGy. LIMITATIONS: None. FINDINGS: RIGHT: FEMUR: 50.5 cm. TIBIA: 39.8 cm. TOTAL RIGHT LOWER EXTREMITY LENGTH: 89.5 cm. LEFT: FEMUR: 49.9 cm. TIBIA: 39.7 cm. TOTAL LEFT LOWER EXTREMITY LENGTH: 89.0 cm. IMPRESSION: LEG LENGTH MEASUREMENTS DETAILED ABOVE. TECHNICAL DOCUMENTATION: JOB ID: [id number] Quality ID # 436: Final reports with documentation of one or more dose reduction techniques (e.g., Au tomated exposure control, adjustment of the mA and/or kV according to patient size, use of iterative reconstruction technique) 2010 [employer]- All Rights Reserved Reading location - IP/workstation name: [email or web address]
== END ==
LOC: RAD 11:29
PROVIDERS: ATTEND Podiatrist Foot & Ankle Surgery
DX: Q72.819 Congenital shortening of unspecified lower limb (principal)
CPT/HCPCS: 77073

== ENCOUNTER → 2019-02-02 | Outpatient (CLI) | payer BC ==
--- NOTE | 2019-02-03 09:24 | RADIOLOGY REPORT (SQ) ---
EXAM DESCRIPTION: MRI RT UPPER EXTREMITY WITHOUT COMPLETED DATE/TIME: 02/02/2019 7:56 am REASON FOR STUDY: LOCALIZED SWELLING, MASS AND LUMP, RIGHT UPPER LIMB (R22.31) R22.31 LOCALIZED SWE LLING, MASS AND LUMP, RIGHT UPPER LIMB COMPARISON: None. TECHNIQUE: Multiplanar imaging to include fat and fluid sensitive sequences. RENAL FUNCTION: Not applicable. LIMITATIONS: None. FINDINGS: MASS SIGNAL CHARACTERISTICS: LOCATION: Deep soft tissues overlying the dorsal aspect of the thumb. Largest portion of the mass li es adjacent to the proximal shaft of the proximal phalanx. Tail of signal tracks to the dorsal soft tissues overlying the IP joint. SIGNAL CHARACTERISTICS: Hyperintense T2, lobulated appearance. MEASUREMENTS: Approximately 2.4 cm along the length of the thumb. Up to almost 6 mm transverse dimen abdulaziz. MARROW SIGNAL IN ADJACENT BONES: Normal. OTHER SIGNIFICANT BONE, JOINT OR SOFT TISSUE FINDINGS: MP and IP joint DJD in the thumb. IMPRESSION: 1. Mass along the dorsal aspect of the thumb is likely a ganglion arising from or about the IP joint. TECHNICAL DOCUMENTATION: JOB ID: [id number] 1912 [employer]- All Rights Reserved Reading location - IP/workstation name: [email or web address]
== END ==
LOC: RAD 07:00
PROVIDERS: ATTEND Orthopaedic Surgery
DX: M67.442 Ganglion, left hand (principal)

== ENCOUNTER → 2019-02-15 | Outpatient (CLI) | payer BC ==
[2019-02-15 07:58] LABS: ABSOLUTE BASOPHILS # (AUTO) 0.1 10^3/uL (0.0-0.2); ABSOLUTE EOSINOPHILS # (AUTO) 0.2 10^3/uL (0.0-0.6); ABSOLUTE LYMPHOCYTES (AUTO) 1.9 10^3/uL (0.5-4.7); ABSOLUTE MONOCYTES (AUTO) 0.5 10^3/uL (0.1-1.4); ABSOLUTE NEUT (AUTO) 2.7 10^3/uL (1.7-8.2); BASOPHILS % (AUTO) 1.1 % (0-2); EOSINOPHILS % (AUTO) 3.3 % (0-6); HEMATOCRIT 39.6 % (36.0-47.0); HEMOGLOBIN 13.4 g/dL (12.0-15.5); LYMPHOCYTES % (AUTO) 35.2 % (13-45); MEAN CORPUSCULAR HEMOGLOBIN 29.4 pg (27.0-33.4); MEAN CORPUSCULAR VOLUME 87 fl (80-97); MONOCYTES % (AUTO) 8.8 % (3-13); PLATELET COUNT 214 10^3/uL (150-450); RED BLOOD COUNT 4.57 10^6/uL (3.72-5.28); RED CELL DISTRIBUTION WIDTH 12.7 % (11.5-14.0); SEGMENTED NEUTROPHILS % (AUTO) 51.6 % (42-78); TOTAL CELLS COUNTED % (AUTO) 100 %; WHITE BLOOD COUNT 5.3 10^3/uL (4.0-10.5)
[2019-02-15 08:19] LABS: ALBUMIN 3.9 g/dL (3.5-5.0); ALKALINE PHOSPHATASE 86 U/L (38-126); ANION GAP 7 (5-19); ASPARTATE AMINO TRANSFERASE 32 U/L (14-36); BILIRUBIN,DIRECT 0.2 mg/dL (0.0-0.4); BILIRUBIN,TOTAL 0.5 mg/dL (0.2-1.3); BLOOD UREA NITROGEN 16 mg/dL (7-20); CALCIUM 9.5 mg/dL (8.4-10.2); CARBON DIOXIDE 29 mmol/L (22-30); CHLORIDE 104 mmol/L (98-107); GLUCOSE 91 mg/dL (75-110); POTASSIUM 4.2 mmol/L (3.6-5.0); TOTAL PROTEIN 6.5 g/dL (6.3-8.2)
== END ==
LOC: LAB 07:36
PROVIDERS: ATTEND Family Medicine Geriatric Medicine
DX: I10 Essential (primary) hypertension (principal); Z79.899 Other long term (current) drug therapy
CPT/HCPCS: 36415; 80053; 85025

== ENCOUNTER → 2019-03-15 | Outpatient (CLI) | payer BC ==
--- NOTE | 2019-03-15 16:22 | RADIOLOGY REPORT (SQ) ---
EXAM DESCRIPTION: SACRUM AND COCCYX COMPLETED DATE/TIME: 03/15/2019 3:00 pm REASON FOR STUDY: LOW BACK PAIN M54.5 LOW BACK PAIN COMPARISON: None. NUMBER OF VIEWS: Three views. TECHNIQUE: AP, lateral, and tilt views of the sacrum and coccyx. LIMITATIONS: None. FINDINGS: MINERALIZATION: Normal. BONES: No acute fracture or dislocation. No worrisome bone lesions. SOFT TISSUES: No soft tissue swelling. No foreign body. OTHER: No other significant finding. IMPRESSION: NEGATIVE STUDY OF THE SACRUM AND COCCYX. TECHNICAL DOCUMENTATION: JOB ID: [id number] [employer]- All Rights Reserved Reading location - IP/workstation name: [email or web address]
--- NOTE | 2019-03-15 16:22 | RADIOLOGY REPORT (SQ) ---
EXAM DESCRIPTION: LUMBAR SPINE COMPLETE COMPLETED DATE/TIME: 03/15/2019 3:00 pm REASON FOR STUDY: LOW BACK PAIN M54.5 LOW BACK PAIN COMPARISON: None. NUMBER OF VIEWS: Five views including obliques. TECHNIQUE: AP, lateral, oblique, and sacral radiographic images acquired of the lumbar spine. LIMITATIONS: None. FINDINGS: MINERALIZATION: Normal. SEGMENTATION: Normal. No transitional anatomy. ALIGNMENT: Mild scoliosis. VERTEBRAE: Maintained height. No fracture or worrisome bone lesion. DISCS: Preserved height. No significant osteophytes or end plate irregularity. POSTERIOR ELEMENTS: Pedicles and facets are intact. No pars defect or posterior arch defects. HARDWARE: None in the spine. PARASPINAL SOFT TISSUES: Normal. PELVIS: Intact as visualized. No fractures or worrisome bone lesions. SI joints intact. OTHER: No other significant finding. IMPRESSION: No acute findings. TECHNICAL DOCUMENTATION: JOB ID: [id number] [employer]- All Rights Reserved Reading location - IP/workstation name: [email or web address]
== END ==
LOC: OD 14:32
PROVIDERS: ATTEND Family Medicine Geriatric Medicine
DX: M54.5 Low back pain (principal); N39.0 Urinary tract infection, site not specified; R31.9 Hematuria, unspecified
CPT/HCPCS: 72110; 72220; 87086

== ENCOUNTER → 2019-04-29 | Outpatient (CLI) | payer BC ==
[2019-04-29 15:38] LABS: ABSOLUTE BASOPHILS # (AUTO) 0.1 10^3/uL (0.0-0.2); ABSOLUTE EOSINOPHILS # (AUTO) 0.2 10^3/uL (0.0-0.6); ABSOLUTE MONOCYTES (AUTO) 0.7 10^3/uL (0.1-1.4); BASOPHILS % (AUTO) 1.1 % (0-2); EOSINOPHILS % (AUTO) 2.7 % (0-6); HEMATOCRIT 39.5 % (36.0-47.0); HEMOGLOBIN 13.1 g/dL (12.0-15.5); LYMPHOCYTES % (AUTO) 29.2 % (13-45); MEAN CORPUSCULAR HEMOGLOBIN 29.7 pg (27.0-33.4); MEAN CORPUSCULAR HGB CONC 33.2 g/dL (32.0-36.0); MEAN CORPUSCULAR VOLUME 89 fl (80-97); PLATELET COUNT 214 10^3/uL (150-450); RED BLOOD COUNT 4.43 10^6/uL (3.72-5.28); RED CELL DISTRIBUTION WIDTH 14.3 % (11.5-14.0); TOTAL CELLS COUNTED % (AUTO) 100 %
--- NOTE | 2019-04-29 15:46 | RADIOLOGY REPORT (SQ) ---
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 TECHNIQUE: Dynamic and static harrington-scale images acquired of the thyroid gland. Selected additional c olor/power Doppler images recorded. All images stored to PACS. LIMITATIONS: None. FINDINGS: RIGHT LOBE: Normal size. Homogeneous echotexture. No cystic or solid masses. LEFT LOBE: Normal size. Homogeneous echotexture. No cystic or solid masses. ISTHMUS: Normal size. Homogeneous echotexture. No cystic or solid masses. OTHER: No other significant finding. IMPRESSION: NORMAL THYROID ULTRASOUND. TECHNICAL DOCUMENTATION: JOB ID: [id number] [employer]- All Rights Reserved Reading location - IP/workstation name: [email or web address]
[2019-04-29 16:08] LABS: ALBUMIN 3.9 g/dL (3.5-5.0); ALKALINE PHOSPHATASE 90 U/L (38-126); ANION GAP 7 (5-19); ASPARTATE AMINO TRANSFERASE 24 U/L (14-36); BILIRUBIN,DIRECT 0.1 mg/dL (0.0-0.4); BILIRUBIN,TOTAL 0.3 mg/dL (0.2-1.3); BLOOD UREA NITROGEN 20 mg/dL (7-20); CALCIUM 9.7 mg/dL (8.4-10.2); CARBON DIOXIDE 25 mmol/L (22-30); CHLORIDE 105 mmol/L (98-107); GLUCOSE 114 mg/dL (75-110); POTASSIUM 4.4 mmol/L (3.6-5.0); TOTAL PROTEIN 6.5 g/dL (6.3-8.2)
== END ==
LOC: RAD 15:04
PROVIDERS: ATTEND Family Medicine Geriatric Medicine
DX: I11.0 Hypertensive heart disease with heart failure (principal); I50.9 Heart failure, unspecified; E01.0 Iodine-deficiency related diffuse (endemic) goiter; E66.3 Overweight
CPT/HCPCS: 36415; 76536; 80053; 84443; 85025

== ENCOUNTER → 2019-05-12 | Outpatient (CLI) | payer BC | LOC: OD 09:54 | PROVIDERS: ATTEND Family Medicine Geriatric Medicine | DX: R73.9 Hyperglycemia, unspecified (principal) | CPT/HCPCS: 36415; 82947; 82950; 83036 ==

== ENCOUNTER → 2019-09-22 | Outpatient (CLI) | payer BC ==
[2019-09-22 17:39] LABS: ABSOLUTE BASOPHILS # (AUTO) 0.1 10^3/uL (0.0-0.2); ABSOLUTE EOSINOPHILS # (AUTO) 0.1 10^3/uL (0.0-0.6); ABSOLUTE LYMPHOCYTES (AUTO) 1.8 10^3/uL (0.5-4.7); ABSOLUTE MONOCYTES (AUTO) 0.6 10^3/uL (0.1-1.4); BASOPHILS % (AUTO) 1.2 % (0-2); HEMOGLOBIN 13.4 g/dL (12.0-15.5); LYMPHOCYTES % (AUTO) 21.2 % (13-45); MEAN CORPUSCULAR HEMOGLOBIN 30.7 pg (27.0-33.4); MEAN CORPUSCULAR HGB CONC 34.4 g/dL (32.0-36.0); MEAN CORPUSCULAR VOLUME 89 fl (80-97); MONOCYTES % (AUTO) 6.9 % (3-13); PLATELET COUNT 214 10^3/uL (150-450); RED BLOOD COUNT 4.37 10^6/uL (3.72-5.28); RED CELL DISTRIBUTION WIDTH 13.1 % (11.5-14.0); SEGMENTED NEUTROPHILS % (AUTO) 69.7 % (42-78); TOTAL CELLS COUNTED % (AUTO) 100 %; WHITE BLOOD COUNT 8.6 10^3/uL (4.0-10.5)
[2019-09-22 17:57] LABS: ALBUMIN 3.9 g/dL (3.5-5.0); ALKALINE PHOSPHATASE 77 U/L (38-126); ASPARTATE AMINO TRANSFERASE 18 U/L (14-36); BILIRUBIN,TOTAL 0.2 mg/dL (0.2-1.3); BLOOD UREA NITROGEN 18 mg/dL (7-20); CALCIUM 9.4 mg/dL (8.4-10.2); CARBON DIOXIDE 29 mmol/L (22-30); CHLORIDE 104 mmol/L (98-107); GLUCOSE 117 mg/dL (75-110); POTASSIUM 4.2 mmol/L (3.6-5.0); TOTAL PROTEIN 6.4 g/dL (6.3-8.2)
[2019-09-22 18:04] LABS: ANION GAP 4 (5-19)
== END ==
LOC: OD 16:53
PROVIDERS: ATTEND Family Medicine Geriatric Medicine
DX: I10 Essential (primary) hypertension (principal); R25.2 Cramp and spasm; Z79.899 Other long term (current) drug therapy
CPT/HCPCS: 36415; 80053; 83735; 85025

== ENCOUNTER → 2019-09-30 | Outpatient (CLI) | payer BC ==
--- NOTE | 2019-10-01 10:58 | RADIOLOGY REPORT (SQ) ---
EXAM DESCRIPTION: MRI HEAD COMBO IMAGES COMPLETED DATE/TIME: 09/30/2019 4:10 pm REASON FOR STUDY: MULTIPLE SCLEROSIS G35 MULTIPLE SCLEROSIS COMPARISON: None. TECHNIQUE: Multiplanar imaging includes noncontrasted T1, T2, FLAIR, diffusion with ADC map and post gadolinium contrast T1 sequences. Images stored on PACS. CONTRAST TYPE AND DOSE: Not provided. RENAL FUNCTION: Not indicated. ACR Type II contrast agent associated with few, if any, unconfounded cases of NSF LIMITATIONS: None. FINDINGS: ANATOMY: No anomalies. Normal vascular flow voids. Pituitary fossa normal. CSF SPACES: Normal in size and contour. No hemorrhage. CEREBRUM: Sulci and gyri normal in size and contour. Normal white matter signal on FLAIR imaging. No evidence of hemorrhage, mass, or extraaxial fluid collection. No abnormal enhancement post contrast. POSTERIOR FOSSA: No signal alteration. No hemorrhage. No edema, masses, or mass effect. Internal shaye tory canals, cerebellopontine angles, mastoids normal. No enhancing lesions. No abnormal enhancement post contrast. DIFFUSION IMAGING: Negative for acute or subacute infarction. ORBITS: No masses. Globes normal. PARANASAL SINUSES: No fluid levels. Mucosa normal. OTHER: No other significant finding. IMPRESSION: NORMAL MRI OF THE BRAIN WITHOUT AND WITH INTRAVENOUS GADOLINIUM CONTRAST. EVIDENCE OF ACUTE STROKE: NO. TECHNICAL DOCUMENTATION: JOB ID: [id number] 2010 [employer]- All Rights Reserved Reading location - IP/workstation name: [email or web address]
== END ==
LOC: RAD 15:01
PROVIDERS: ATTEND Specialist
DX: G35 Multiple sclerosis (principal); E53.8 Deficiency of other specified B group vitamins
CPT/HCPCS: 36415; 82607; 82746; 82565; 70553; A9576

== ENCOUNTER → 2019-12-21 | Outpatient (CLI) | payer BC ==
--- NOTE | 2019-12-21 14:41 | RADIOLOGY REPORT (SQ) ---
EXAM DESCRIPTION: CT CHEST WITHOUT IMAGES COMPLETED DATE/TIME: 12/21/2019 9:17 am REASON FOR STUDY: J43.2 DISORDERS OF ESOPHAGUS IN DISEASES CLASSIFIED ELSEWHERE J43.2 CENTRILOBULAR EMPHYSEMA COMPARISON: CT chest, 10/13/2018 CT chest, 04/13/2018. CT chest 05/06/2017 TECHNIQUE: CT scan performed of the chest without intravenous contrast. Images reviewed with lung, soft tissue and bone windows. Reconstructed coronal and sagittal MPR images reviewed. All images st ored on PACS. All CT scanners at this facility use dose modulation, iterative reconstruction, and/or weight based d osing when appropriate to reduce radiation dose to as low as reasonably achievable (ALARA). [facility]: Dose Right [facility]: CareDose [facility]: Dose Right [facility]: Teradose 4D [facility]: [employer] RADIATION DOSE: CT Rad equipment meets quality standard of care and radiation dose reduction techniq ues were employed. CTDIvol: 15.2 mGy. DLP: 638 mGy-cm. mGy. LIMITATIONS: No technical limitations. FINDINGS: LUNGS AND PLEURA: Trachea has normal caliber and appearance. No bronchial wall thickening or bronchiectasis. Linear atelectasis in the right lung base. Partially calcified right upper lobe granuloma is unchanged. There is a new subpleural solid nodule in the anterior right middle lobe me asuring 5 mm (image 68). New 4 mm noncalcified pulmonary nodule adjacent to this also in the right m iddle lobe. There is a new subpleural nodule in the left upper lobe measuring 8 mm (image 45). Righ t apical pleural and parenchymal scarring is unchanged. No focal consolidation. No pleural effusion or pneumothorax. HILAR AND MEDIASTINAL STRUCTURES: Calcified right hilar and mediastinal lymph nodes consistent with h ealed granulomatous disease, unchanged. No mediastinal mass or adenopathy. HEART AND VASCULAR STRUCTURES: No aneurysm. No pericardial effusion. UPPER ABDOMEN: No significant findings. Limited exam. THYROID AND OTHER SOFT TISSUES: No masses. No adenopathy. BONES: No significant finding. HARDWARE: None in the chest. OTHER: No other significant findings. IMPRESSION: 1. New subpleural solid nodules in the right middle lobe and lingula, maximal size 8 mm. FLEISCHNER CRITERIA FOR FOLLOW-UP OF PULMONARY NODULES Incidentally detected new nodules in persons 35 or older. HIGH RISK: History of smoking or other known risk factors. 6-8 mm single solid nodule: LOW RISK: CT 6-12 mo; then consider CT 18-24 mo. HIGH RISK: CT 6-12 mo; t hen CT 18-24 mo. 2. Healed granulomatous disease, stable. TECHNICAL DOCUMENTATION: JOB ID: [id number] Quality ID # 436: Final reports with documentation of one or more dose reduction techniques (e.g., Au tomated exposure control, adjustment of the mA and/or kV according to patient size, use of iterative reconstruction technique) 2010 [employer]- All Rights Reserved Reading location - IP/workstation name: [email or web address]
== END ==
LOC: RAD 10:10
PROVIDERS: ATTEND Internal Medicine Pulmonary Disease
DX: J43.2 Centrilobular emphysema (principal); R91.8 Other nonspecific abnormal finding of lung field
CPT/HCPCS: 71250

== ENCOUNTER → 2019-12-29 | Outpatient (CLI) | payer BC, OTHER ==
[2019-12-29 16:12] LABS: ANION GAP 9 (5-19); BLOOD UREA NITROGEN 18 mg/dL (7-20); CALCIUM 9.4 mg/dL (8.4-10.2); CARBON DIOXIDE 29 mmol/L (22-30); CHLORIDE 102 mmol/L (98-107); GLUCOSE 134 mg/dL (75-110); POTASSIUM 4.5 mmol/L (3.6-5.0)
== END ==
LOC: OD 15:01
PROVIDERS: ATTEND Family Medicine Geriatric Medicine
DX: I10 Essential (primary) hypertension (principal); Z79.899 Other long term (current) drug therapy
CPT/HCPCS: 36415; 80048; 86698

== ENCOUNTER → 2020-01-04 | Outpatient (CLI) | payer BC, OTHER ==
--- NOTE | 2020-01-05 13:22 | RADIOLOGY REPORT (SQ) ---
EXAM DESCRIPTION: PET CT SKULL/THIGH IMAGES COMPLETED DATE/TIME: 01/04/2020 3:07 pm REASON FOR STUDY: R91.8 OTHER NONSPECIFIC ABNORMAL FINDING OF LUNG FIELD R91.8 OTHER NONSPECIFIC AB NORMAL FINDING OF LUNG FIELD COMPARISON: Chest CT 12/21/2019. RADIONUCLIDE AND DOSE: 9.2 mCi F18 FDG The route of agent administration: Intravenous FASTING BLOOD SUGAR: 80 mg/dl CONTRAST TYPE AND DOSE: No CT contrast given. TECHNIQUE: Blood glucose level was verified. Above dose of FDG was injected intravenously. 2-D seg mented attenuation correction images were obtained from the base of the skull to the midthighs. Nonc ontrast CT images were obtained for attenuation correction and fusion with emission images. CT image s were performed without oral or intravenous contrast and are not sensitive for parenchymal lesions. A series of overlapping emission PET images were obtained. Images reviewed and manipulated at [facility] work station by the radiologist. Images stored on PACS. LIMITATIONS: None. FINDINGS: HEAD AND NECK: No areas of abnormal metabolic activity in the soft tissues of the head and neck. CHEST: No areas of abnormal metabolic activity in the chest. ABDOMEN AND PELVIS: No areas of abnormal metabolic activity in the abdomen or pelvis. Expected physi ologic activity is present in the genitourinary system and bowel. PROXIMAL LOWER EXTREMITIES: No areas of abnormal metabolic activity in the soft tissues of the lower extremities. BONES: No abnormal metabolic activity in the visualized skeleton. ADDITIONAL CT FINDINGS: Unchanged recently described pulmonary nodules. OTHER: No other significant findings. IMPRESSION: Non hypermetabolic pulmonary nodules. COMMENT: Small size limits sufficient negative predictive value. Serial chest CT follow-up is recom mended. TECHNICAL DOCUMENTATION: JOB ID: [id number] 2010 [employer]- All Rights Reserved Reading location - IP/workstation name: [email or web address]
== END ==
LOC: RAD 09:41
PROVIDERS: ATTEND Internal Medicine Pulmonary Disease
DX: R91.8 Other nonspecific abnormal finding of lung field (principal)
CPT/HCPCS: 78815; A9552

== ENCOUNTER → 2020-03-30 | Outpatient (CLI) | payer BC, OTHER ==
[2020-03-30 11:06] LABS: ANION GAP 7 (5-19); BLOOD UREA NITROGEN 17 mg/dL (7-20); CALCIUM 9.5 mg/dL (8.4-10.2); CARBON DIOXIDE 28 mmol/L (22-30); CHLORIDE 104 mmol/L (98-107); GLUCOSE 90 mg/dL (75-110); GLUCOSE,FASTING 90 mg/dL (<110); POTASSIUM 4.5 mmol/L (3.6-5.0)
== END ==
LOC: OD 09:17
PROVIDERS: ATTEND Family Medicine Geriatric Medicine
DX: I10 Essential (primary) hypertension (principal); Z79.899 Other long term (current) drug therapy
CPT/HCPCS: 36415; 80048; 82947; 82950; 83036

== ENCOUNTER → 2020-04-12 | Outpatient (CLI) | payer BC, OTHER ==
[2020-04-12 16:07] LABS: ABSOLUTE BASOPHILS # (AUTO) 0.1 10^3/uL (0.0-0.2); ABSOLUTE LYMPHOCYTES (AUTO) 0.9 10^3/uL (0.5-4.7); ABSOLUTE MONOCYTES (AUTO) 0.5 10^3/uL (0.1-1.4); ABSOLUTE NEUT (AUTO) 4.9 10^3/uL (1.7-8.2); BASOPHILS % (AUTO) 0.9 % (0-2); EOSINOPHILS % (AUTO) 0.4 % (0-6); HEMATOCRIT 38.7 % (36.0-47.0); HEMOGLOBIN 13.1 g/dL (12.0-15.5); LYMPHOCYTES % (AUTO) 14.8 % (13-45); MEAN CORPUSCULAR HEMOGLOBIN 29.5 pg (27.0-33.4); MEAN CORPUSCULAR HGB CONC 33.9 g/dL (32.0-36.0); MEAN CORPUSCULAR VOLUME 87 fl (80-97); MONOCYTES % (AUTO) 7.4 % (3-13); PLATELET COUNT 214 10^3/uL (150-450); RED BLOOD COUNT 4.46 10^6/uL (3.72-5.28); RED CELL DISTRIBUTION WIDTH 13.1 % (11.5-14.0); SEGMENTED NEUTROPHILS % (AUTO) 76.5 % (42-78); TOTAL CELLS COUNTED % (AUTO) 100 %; WHITE BLOOD COUNT 6.4 10^3/uL (4.0-10.5)
[2020-04-12 16:23] LABS: ALBUMIN 3.7 g/dL (3.5-5.0); ALKALINE PHOSPHATASE 69 U/L (38-126); ASPARTATE AMINO TRANSFERASE 26 U/L (14-36); BILIRUBIN,DIRECT 0.3 mg/dL (0.0-0.4); BILIRUBIN,TOTAL 0.4 mg/dL (0.2-1.3); BLOOD UREA NITROGEN 17 mg/dL (7-20); C-REACTIVE PROTEIN 11.6 mg/L (<10.0); CALCIUM 9.3 mg/dL (8.4-10.2); CREATINE KINASE 44 U/L (30-135); GLUCOSE 132 mg/dL (75-110); POTASSIUM 4.2 mmol/L (3.6-5.0); TOTAL PROTEIN 6.2 g/dL (6.3-8.2)
[2020-04-12 16:26] LABS: CARBON DIOXIDE 29 mmol/L (22-30); CHLORIDE 104 mmol/L (98-107)
[2020-04-12 16:29] LABS: ANION GAP 4 (5-19)
[2020-04-12 16:44] LABS: ERYTHROCYTE SEDIMENTATION RATE 14 mm/hr (0-30)
== END ==
LOC: OD 14:49
PROVIDERS: ATTEND Internal Medicine Rheumatology
DX: M06.4 Inflammatory polyarthropathy (principal); M15.0 Primary generalized (osteo)arthritis; G89.4 Chronic pain syndrome; E55.9 Vitamin D deficiency, unspecified; R53.82 Chronic fatigue, unspecified; Z79.899 Other long term (current) drug therapy
CPT/HCPCS: 36415; 80053; 82306; 82550; 85025; 85652; 86140